=== PATIENT | male | born 1965 | race Caucasian/White ===

== ENCOUNTER 2023-11-23 17:30 | Inpatient (IN) | payer BC, SELFPAY ==
[2023-11-23] VITALS (23 sets, daily range): BP systolic 140–198; BP diastolic 75–119; BMI 24.4; BMI 23.3
--- NOTE | 2023-11-23 14:09 | ED.GENMED ---
History of Present Illness
General
Chief Complaint: Abnormal Lab Value
Source: patient
Exam Limitations: none
Time Seen by Provider: 11/23/23 13:44
Nursing documentation reviewed up to this point in time: agreed with
Travel History
Have you had any contact with someone who has COVID-19?: No
Do you have any symptoms of coronavirus? Fever > 100 degrees, chills, cough, shortness of breath, sore throat, loss of taste or smell, muscle aches, or headache?: No
History of Present Illness
History of Present Illness:
Patient is a 58-year-old presents to the ER for evaluation. Patient reports he had a viral illness 10 days ago. He had a headache body aches felt fluish. He was seen in urgent care and tested negative for flu COVID and RSV. He had headache with
this. Headache resolved then he developed some earache and a sore throat that had also since resolved. During that time he had 2 episodes of nasal bleeding when he blew his nose.
He does report that the virus really hit him and he lost 10 pounds throughout the virus he was not hungry he felt very achy etc. Since then he has felt very fatigued and has some shortness of breath with exertion. He had blood work done by his
family doctor and his hemoglobin found below 6.5. He denies any black stools. He has never had a colonoscopy. Denies any change of bowel or bladder .
prior to this virus he was very healthy is a mountain bike or exercises frequently. He does have history of hypertension but stopped it a while ago.
Past History
Past History
ED Past Medical History: Negative HTN or Hypercholesterolemia
ED Past Surgical History: Negative Cardiac
Social History
Tobacco: Non-smoker
Alcohol: None
Drug: None
Personal:
Living: with family
Employment: Employed
Family History
Family History: Other
Review of Systems
Review of Systems
Allergies reviewed?: Yes
Other source history: family
All Other Systems: ROS reviewed and negative except as documented in HPI and ROS
Constitutional: Reports fatigue; Denies fever
EENT: Reports no symptoms
Respiratory: Reports other (SOB w/ exertion )
Cardiac: Reports no symptoms
ABD/GI: Reports no symptoms
: Reports no symptoms
Musculoskeletal: Reports no symptoms
Skin: Reports no symptoms
Neurological: Reports no symptoms
Hematologic/Lymphatic: Reports no symptoms
Psychiatric: Reports no symptoms
Phy Exam
General Physical Exam
General Presentation: no apparent distress
General age: appears stated age
General Skin: warm and dry
General Habitus: normal
General Mental: alert
General Hydration: appears well hydrated
Cardiovascular Exam
Cardiovascular Exam: tachycardia
Pulmonary Exam
Pulmonary Exam: lungs clear and no respiratory distress
Gastrointestinal Exam
Gastrointestinal Exam: non tender, soft and other (brown stool heme negative )
Neurological Exam
Neurological Exam: alert and oriented x3
Musculoskeletal Exam
Musculoskeletal Exam: full ROM
Skin Exam
Skin Exam: normal color and warm/dry
Psychiatric Exam
Psychiatric Exam: normal mood/affect
Course
Orders/Labs/Results
Orders:
Orders
11/23/23 13:57
IV Insert/Care/Rem.- Treatment PRN
11/23/23 14:05
Type+Screen Urgent
Complete Blood Count/With Diff Urgent
Comprehensive Metabolic Panel Urgent
Haptoglobin [S] Urgent
Comment: ADDON
Iron Urgent
Comment: ADD ON
LDH Urgent
Manual Differential Urgent
Reticulocyte Count Urgent
Comment: ADDON
Total Iron Binding Urgent
Comment: ADD ON
11/23/23 14:43
* Blood Bank Products Urgent
's Orders: kevin
Blood Bank Products: *Packed RBC Leuko(PRBC's)
Quantity: 2
Transfuse Today: Yes
Reason: Anemia
Comment: consent obtained
11/23/23 14:48
0.9% Sodium Chloride 500 ml [Nss] 500 ml IV BOLUS
11/23/23 14:51
Electrocardiogram (*1) Stat
Reason for Study: Other
Other Reason for Exam: chest pain
Cardiac Monitoring- Treatment ONCE
EKG- Treatment ONCE
11/23/23 Dinner
Regular
At Your Request: Full Participation
11/23/23 17:10
Diltiazem Extended Release [Cardizem Cd] 180 mg PO NOW STA
11/23/23 17:11
Add On- LAB Urgent
Tests Added?: haptoglobin, retic, LDH
11/23/23 17:13
HEMATOLOGY CONSULT Routine
Consulting Provider: Pavan Love
Was physician already notified: Yes
Reason for consult: Symptomatic anemia
11/23/23 17:16
Admit/Transfer Patient As Directed
Co-Sign Provider:
Level of Care: Inpatient admission
Assign to:: Telemetry
Physician / Group: randy navarro
Diagnosis: Symptomatic anemia, HTN
Reason for Telemetry: Arrhythmia
Date to Stop Telemetry: 11/26/23
Time to Stop Telemetry: 11:00
Reason for Hospitalization: Symptomatic anemia
Expected length of stay greater than two midnights?: Yes
ELOS- Estimated Length of Stay in days: 5
I certify the patient meets the requirements for IP care: Yes
Code Status As Directed
Resuscitation Status: Full Code
11/23/23 17:19
Add On- LAB Urgent
Tests Added?: iron tibc, b12 folate
11/23/23 17:25
Consult Infectious Disease [INFECTIOUS DISEASE CONSULT] Routine
Consulting Provider: Ruby Mahan
Was physician already notified: Yes
Reason for consult: symptmatic anemia following febrile illness
11/23/23 17:32
Folate Urgent
Comment: ADD ON
Vitamin B12 Urgent
Comment: ADD ON
11/23/23 18:00
Flush (0.9% Sodium Chloride) [Flush (Nss)] See Dose Instructions IV PER PROTOCOL
11/23/23 18:07
Momo-Jackson Virus Ab Panel I [S] Routine
Monotest Routine
11/23/23 19:21
Acetaminophen [Tylenol] 650 mg PO Q4HPRN PRN
11/23/23 19:21
Activity As Directed
Activity Level: As Tolerated
Pneumatic Compression Sleeves As Directed
Type: Knee high
Vital Signs As Directed
Frequency: Per unit guidelines
Ot Eval And Treat Routine
Pt Eval And Treat Routine
Activity Level: As Tolerated
DX Deep Vein Thrombosis Video Routine
11/24/23 06:13
Cardiovascular Evaluation IN AM
Complete Blood Count/With Diff IN AM
Comprehensive Metabolic Panel IN AM
11/24/23 08:00
Diltiazem Extended Release [Cardizem Cd] 180 mg PO DAILY
Lisinopril [Zestril] 20 mg PO DAILY
11/25/23 05:22
Complete Blood Count/With Diff IN AM
Comprehensive Metabolic Panel IN AM
11/26/23 06:00
Complete Blood Count/With Diff IN AM
Comprehensive Metabolic Panel IN AM
11/26/23 11:00
DC Protocol for Telemetry ONCE
11/27/23 06:00
Complete Blood Count/With Diff IN AM
Comprehensive Metabolic Panel IN AM
Abnormal Lab Results
11/23/23
14:05
RBC 2.02 L 10^6/uL
(4.70-6.10)
Hgb 6.0 L* g/dL
(13.0-18.0)
Hct 17.2 L* %
(39.0-52.0)
Plt Count 551 H 10^3/uL
(130-400)
Abs Immat Gran (auto) 1.2 H 10^3/uL
(0-0.05)
Absolute Monos (auto) 0.9 H 10^3/uL
(0.1-0.6)
Immature Gran % 15.9 H %
(0-0.5)
Monocytes % 12.0 H %
(1.7-9.3)
Band Neutrophils 8 H %
(0-3)
Blast Cells 3 H* %
(-)
BUN 30 H mg/dl
(9-20)
Glucose 100 H mg/dl
(70-99)
Iron 305 H ug/dl
(49-181)
% Saturation 107 H %
(20-50)
ALT 56 H U/L
(0-50)
Alkaline Phosphatase 137 H U/L
(38-126)
Lactate Dehydrogenase 375 H U/L
(120-246)
Crossmatch IS Only See Detail
11/23/23 14:05
11/23/23 14:05
Vital Signs
Initial and Last Documented VS:
Initial Vital Signs
Temp Pulse Resp BP Pulse Ox
98.2 F 113 16 198/119 99
11/23/23 13:29 11/23/23 13:29 11/23/23 13:29 11/23/23 13:29 11/23/23 13:29
Last Documented Vital Signs
Temp Pulse Resp BP Pulse Ox
98.2 F 90 18 172/95 97
11/25/23 23:55 11/25/23 23:55 11/25/23 23:55 11/25/23 23:55 11/25/23 23:55
Gusset Folder consulted with Physician
Gusset Folder consulted with physician?: Yes
Name of Physician Consulted: kiara
MDM/Problems Addressed
Differential Diagnosis Includes:
Not limited to anemia /hemolytic anemia, cancers
MDM/Problems Addressed:
58-year-old male presents to the ER sent by family doctor for low hemoglobin. Patient is document had a virus 10 days ago and ever since has felt very fatigued. Denies any black or dark stools. Patient was found to have a hemoglobin low here of
6.0. He denies any rectal bleeding or black stools. Rectal exam shows brown stool heme-negative here in the ER. nml wbc elevated platlets , elevated bun . Pt is mildly tachycardic however no acute distress. Patient consented for blood will
transfuse. Patient is symptomatic anemia with tachycardia low hemoglobin will admit for further evaluation
*Pulse Oximetry
Patient hypoxic: no
*Critical Care Note
Total Time (30-74mins, 75-104mins- exclusive of procedures): Not Applicable
ED Attending Note
-
Portions of this chart may have been created with voice recognition software.� Occasional wrong word or��sound alike� substitutions may have occurred due to the inherent limitations of voice recognition software.
Discharge Plan
Departure
Patient Disposition: Admit
Date of Disposition: 11/23/23
Time of Disposition: 14:51
Admit to: Med/Surg
Admit to doctor: hospitalist
Presentation/result/management discussed w/ accepting MD/DO: Hospitalist
Patient with high blood pressure during this ER visit?: Yes
Condition: Fair
Covid-19: Not Applicable
Discharge Problem:
Symptomatic anemia
Interventions
Interventions:
*Risk Screen - Suicide Last Done: 11/23/23 13:29
*General Assessment Last Done: 11/23/23 13:29
*Neglect/Abuse Screening Last Done: 11/23/23 13:29
ED- Fall Risk Assessment Last Done: 11/23/23 14:14
*ED COVID-19 Vaccine History Last Done: 11/23/23 14:14
*Nursing Disposition Last Done: 11/23/23 19:36
Discharge Date and Time
Discharge Date/Time: 11/23/23 19:36
[2023-11-23 14:19] LABS: Mean Corp Hgb Conc. 34.9 g/dL (33.0-37.0); Mean Corpuscular Hgb 29.7 pg (27.0-31.0); Mean Corpuscular Volume 85.1 fL (80.0-94.0); Mean Platelet Volume 9.9 fL (7.4-10.4); Platelet Count 551 10^3/uL (130-400); Red Blood Cell Count 2.02 10^6/uL (4.70-6.10); Red Cell Dist. Width 12.8 % (11.5-14.5); White Blood Cell Count 7.8 10^3/uL (4.8-10.8)
[2023-11-23 14:25] LABS: Hematocrit 17.2 % (39.0-52.0)
[2023-11-23 14:40] LABS: ALT (SGPT) 56 U/L (0-50); AST (SGOT) 34 U/L (17-59); Alkaline Phosphatase 137 U/L (38-126); Blood Urea Nitrogen 30 mg/dl (9-20); Calcium 9.6 mg/dl (8.4-10.2); Carbon Dioxide 25 mmol/L (22-30); Chloride 106 mmol/L (98-107); Estimated Creatinine Clearance 124 ml/min; Glucose 100 mg/dl (70-99); LDH 375 U/L (120-246); Potassium 4.3 mmol/L (3.5-5.1); Sodium 137 mmol/L (135-145); Total Bilirubin 0.4 mg/dl (0.2-1.3); Total Protein 7.8 g/dl (6.3-8.2); eGFR > 60.00
[2023-11-23] MEDS: NSS 500 IV (14:53)
[2023-11-23 15:17] LABS: Band Neutrophils 8 % (0-3); Lymphocytes 35 % (20-51); Metamyelocytes 1 % (-); Monocytes 5 % (2-9); Myelocytes 2 % (-); Promyelocytes 2 % (-)
[2023-11-23 15:18] LABS: Anisocytosis 1+; Blasts 3 % (-); Hypochromasia 1+; Normal RBC Morphology No; Platelets Checked Yes; Polychromasia 1+
[2023-11-23 15:19] LABS: Stomatocytes 1+; Total Cells Counted 100
--- NOTE | 2023-11-23 16:24 | HPS.HSE ---
Addendum entered and electronically signed by Osvaldo Tidwell MD 11/23/23 18:04:
Seen and examined by me independently in collaboration with the nurse practitioner Nina.
Past medical history/social history/medication/allergies reviewed.
Lab data and imaging data reviewed.
58 healthy and active gentleman presents with symptomatic severe anemia.
Preceding this he had an episode of severe pharyngitis which was self-limiting. He apparently had COVID, flu and RSV tested. He is not sure if he had a strep throat swab done.
Following severe pharyngitis episode he is extremely fatigued.
Patient currently has no signs of pharyngitis or tender lymphadenopathy nor splenomegaly. He has severe anemia with significant left shift and has bone marrow including peripheral blasts.
No whatsoever symptoms before his pharyngitis episode. No type B symptoms either.
With mild abnormal LFTs as well.
Heme-negative brown stools noted.
Severe anemia-rule out hemolysis and bone marrow dysfunction. Support with transfusion due to his symptoms and severe anemia.
He has been traveling before his acute severe pharyngitis. Check a Monospot and EBV serologies. Consult ID for differential of his severe pharyngitis. Will consider HIV testing as well.
Hematology input will be requested-do recommend leukemia lymphoma panel to start.
Discussed with at bedside.
Original Note:
Family Physician
-
Family Physician: Jose Maria Longoria
Chief Complaint
-
Fatigue, abnormal outpatient hemoglobin
History of Present Illness
58-year-old male complaining of a viral illness 10 days ago where he had headache with 4 to 5 days of fever then developed sore throat and earache. He reports he was seen at urgent care tested negative for flu COVID and RSV. Had outpatient lab
work done by his PCP was noted to have a hemoglobin of 6.5. He denies black or bloody stools. He had heme-negative brown stool in the ER he reports he has never had an endoscopy or colonoscopy. In the ER he was noted to have a hemoglobin of 6.
He has past medical history of hypertension which started back on blood pressure medication 1 week ago by his PCP.
Medical History
Past Medical History
Past Medical History: Reports HTN and Hypercholesterolemia
Past Surgical History: Reports Other
Additional Past Surgical History:
Left shoulder AC ligament reconstruction August 2008
C5-6, C6-7 discectomy
Social History
Tobacco: Non-smoker
Alcohol: Occasional
Drug: None
Personal:
Living: With Family ()
Employment: Employed
Family History
Family History: Other (Mother living history of Parkinson's father prostate cancer age 83 history of DM2, HTN)
Allergies / Home Medications
Allergies reflects when Allergies were last updated in [facility].
Home Medications with original date entered in [facility]
Allergy/Medication List:
Allergies
Allergy/AdvReac Type Severity Reaction Status Date / Time
No Known Allergies Allergy Verified 11/23/23 14:19
Home Medications
lisinopril 20 mg tablet 20 mg PO DAILY 11/23/23
Review of Systems
-
History Source: Patient and Family ( at bedside)
A 12 point ROS was completed and negative except as noted: Yes
Constitutional: Reports Fatigue; Denies Fever
EENT: Denies Sore Throat or Runny Nose
Respiratory: Denies Cough or Trouble Breathing
Cardiac: Denies Chest Pain, Diaphoresis, Palpitations or Syncope
Abdomen/GI: Denies Abdominal Pain, Nausea, Vomiting, Diarrhea, Constipated or Bloody Stools
: Denies Dysuria, Frequency, Flank Pain, Incontinence, Difficulty Voiding or Urgency
Musculoskeletal: Denies Joint Pain, Joint Swelling or Edema
Skin: Denies Itching or Rash
Neurological: Denies Dizzy, Headache or Weakness
Endocrine: Reports No Symptoms
Hematologic/Lymphatic: Reports No Symptoms
Psych: Reports Calm
Physical Exam
Vital Signs
Vital Signs
Temp Pulse Resp BP Pulse Ox
98.2 F 115 20 190/104 97
11/23/23 13:29 11/23/23 15:15 11/23/23 15:15 11/23/23 14:17 11/23/23 15:15
Physical Exam
General: Comfortable and Conversant; No Pain, Fever or Chills
HEENT: NormoCephalic, Anicteric, Moist mucous membranes, PERRLA and No Ptosis
Respiratory: Clear; No Wheezes, Rales or Rhonchi
Cardiac: S1/S2 and Tachycardia (Sinus tachycardia 113 bpm); No Murmur, Rub, Gallop or Peripheral Edema
Breast: Deferred by me
GI: Soft, Non Tender, Non Distended, Normal Bowel Sounds and No Hepatosplenomegaly
Rectal: Hem Negative (Brown stool)
Genito-urinary: Deferred by me
Musculoskeletal: No Clubbing, No Cyanosis and No Edema
Skin: Warm and Dry; No Rash, Jaundice, Ulcers or Lesions
Neuro: AO x 3, No Motor Deficits, Nonfocal/grossly intact, Cranial Nerves Intact and DTR's Intact & Symmetrical; No Slurred Speech, Facial Droop or Tremors
Psych: Calm
Laboratory Results
-
11/23/23 14:05
11/23/23 14:05
Laboratory Results
Total Bilirubin 0.4 mg/dl (0.2-1.3) 11/23/23 14:05
AST 34 U/L (17-59) 11/23/23 14:05
ALT 56 U/L (0-50) H 11/23/23 14:05
Alkaline Phosphatase 137 U/L (38-126) H 11/23/23 14:05
Data Reviewed
-
Lab Data: Labs Reviewed by me
Impression/Plan
-
Impression/plan:
Admit to telemetry
#Symptomatic anemia concern for blood disorder vs viral acute pharyngitis
#Thrombocytosis
Heme negative brown stool
Hgb 6, PLT 551,, 8% band, 3 blast and 2 promyelocytes on differential
Lactate dehydrogenase elevated at 375
Type and screen, obtain blood consent
Transfuse 2 units PRBC
-Check LDH, haptoglobin, reticulocyte count, mono, ebv
-Consult hematology
checl lymphoma panel/lymphoma panel
-Follow CBC, CMP
EKG: Sinus tach 109 bpm, QTc 490 MS, incomplete RBBB
#Mild transaminitis
AST 34, ALT 56, alk phos 137
#HTN�benign
190/104
- Add Cardizem 180 mg now and daily
-Continue lisinopril 20 mg daily
#RBBB
#Cervical DDD with radiculopathy C5-C6 level
#Cervical stenosis
#HLD
No current meds
DVT prophylaxis
SCDs
Full code
[2023-11-23 17:16] LABS: % Basophils 0.4 % (0-2); % Immature Granulocytes 15.9 % (0-0.5); % Lymphocytes 23.4 % (20.5-51.1); % Neutrophils 48.3 % (42.2-75.2); Absolute Immature Granulocytes 1.2 10^3/uL (0-0.05); Absolute Lymphocytes 1.8 10^3/uL (1.2-3.4); Absolute Monocytes 0.9 10^3/uL (0.1-0.6); Absolute Neutrophils 3.8 10^3/uL (1.4-6.5); Nucleated Red Blood Cells % 0 % (-); Reticulocyte Count 0.5 % (0.4-2.8)
[2023-11-23] MEDS: CARDIZEM CD 180 MG PO (17:27)
[2023-11-23 17:46] LABS: Iron 305 ug/dl (49-181)
[2023-11-23 17:55] LABS: Percent Saturation 107 % (20-50); Total Iron Binding Capacity 283 ug/dl (261-462)
[2023-11-23 18:28] LABS: COVID-19 Antigen Negative (Negative)
[2023-11-23] MEDS: APRESOLINE 5 MG IV (18:28)
[2023-11-23 18:54] LABS: Vitamin B12 943 pg/ml (239-931)
[2023-11-23 19:15] LABS: Monotest Negative (Negative)
--- NOTE | 2023-11-23 19:22 | PTCARENOTE ---
Pt arrived onto floor @1921. Pt AAOx3 and able to walk into room without assistance. Pt arrived with 2nd unit of blood in the process of transfusing, due to hemoglobin of 6.0. Pt is asymptomatic of any reaction. Pt oriented to room and call
judith, will continue to monitor.
[2023-11-24] VITALS (7 sets, daily range): BP systolic 142–162; BP diastolic 85–97; PULSE 89; O2SAT 98
[2023-11-24 06:59] LABS: Hematocrit 25.2 % (39.0-52.0); Mean Corp Hgb Conc. 34.1 g/dL (33.0-37.0); Mean Corpuscular Hgb 29.9 pg (27.0-31.0); Mean Corpuscular Volume 87.5 fL (80.0-94.0); Mean Platelet Volume 10.1 fL (7.4-10.4); Platelet Count 493 10^3/uL (130-400); Red Blood Cell Count 2.88 10^6/uL (4.70-6.10); Red Cell Dist. Width 12.8 % (11.5-14.5); White Blood Cell Count 5.9 10^3/uL (4.8-10.8)
[2023-11-24 07:08] LABS: Hemoglobin 8.6 g/dL (13.0-18.0)
[2023-11-24 07:37] LABS: ALT (SGPT) 49 U/L (0-50); AST (SGOT) 31 U/L (17-59); Albumin 3.9 g/dl (3.5-5.0); Alkaline Phosphatase 120 U/L (38-126); Blood Urea Nitrogen 22 mg/dl (9-20); Calcium 9.3 mg/dl (8.4-10.2); Carbon Dioxide 26 mmol/L (22-30); Chloride 103 mmol/L (98-107); Estimated Creatinine Clearance > 125 ml/min; Glucose 92 mg/dl (70-99); HDL Cholesterol 32 mg/dl; LDL Cholesterol, Calculated 89 mg/dl; Potassium 4.6 mmol/L (3.5-5.1); Sodium 139 mmol/L (135-145); Total Bilirubin 0.8 mg/dl (0.2-1.3); Total Cholesterol 164 mg/dl (50-199); Total Protein 7.5 g/dl (6.3-8.2); Triglyceride 217 mg/dl (10-149); Very Low Density Lipoprotein 43 mg/dl (0-30); eGFR > 60.00
[2023-11-24] MEDS: ZESTRIL 20 MG PO (08:12)
[2023-11-24] MEDS: CARDIZEM CD 180 MG PO (08:13)
[2023-11-24 09:12] LABS: Absolute Neutrophils -Man Diff 2.7 10^3/uL (1.4-6.5); Band Neutrophils 7 % (0-3); Lymphocytes 20 % (20-51); Monocytes 18 % (2-9); Segmented Neutrophils 40 % (42-75)
[2023-11-24 09:13] LABS: Anisocytosis 1+; Hypochromasia 1+; Metamyelocytes 9 % (-); Myelocytes 3 % (-); Normal RBC Morphology No; Platelets Checked Yes; Polychromasia Slight; Stomatocytes 1+
[2023-11-24 09:14] LABS: Total Cells Counted 100
[2023-11-24 09:18] LABS: Blasts 3 % (-)
--- NOTE | 2023-11-24 09:56 | CM ---
Patient seen at bedside. Patient stated that his PCP is Dr. Longoria and he uses the [facility] in [facility]. Patient states that he is independent of ADL's and IADL's. Patient states that he has no DME or past need for VN. CM will continue to follow
for discharge planning needs.
Plan; home with no needs.
--- NOTE | 2023-11-24 11:00 | W.PN.HOSP.TC ---
Today's Communication/Plan
-
Follow ID and hematology recommendations
DC planning
Assessment / Plan
Assessment / Plan
#Symptomatic severe anemia -heme-negative and no iron deficiency. Hemodynamically stable. With abnormal blood smear concerning about bone marrow dysfunction. Mildly elevated LDH but no other evidence of hemolysis-bilirubin normal. Haptoglobin
pending. S/p transfusion with improvement in symptoms.
#Peripheral blast-patient with significant shift in the left side including blasts. Differential also shows promyelocytes, myelocytes, and metamyelocytes. Unclear if reactive or primary bone marrow dysfunction. He recently had a severe acute
pharyngitis which is now resolved. Leukemia/lymphoma panel requested. Await hematology input.
No palpable spleen. No stomach lymphadenopathy.
#Acute self-limiting severe pharyngitis-now resolved. Asymptomatic. Patient with mild abnormal LFTs on admission noted. Monospot negative. EBV serologies pending. Patient does not think he has HIV-did not consent for blood test.
#Mild transaminitis
AST 34, ALT 56, alk phos 137; now normalized.
#HTN�benign
Uncontrolled on admission.
- Added Cardizem 180 mg. Improved blood pressure.
-Continue lisinopril 20 mg daily
#RBBB
#Cervical DDD with radiculopathy C5-C6 level
#Cervical stenosis
#HLD
No current meds
DVT prophylaxis
SCDs
Full code
Anticipated Discharge: Today
Subjective/Interval History
-
Date of Service: November 24, 2023
Feeling improved after transfusion. But has not walked around yet to notice the difference.
No new symptoms.
Objective Data
-
Labs:
Laboratory Results
11/24/23
06:13
WBC 5.9
Hgb 8.6 L D
Hct 25.2 L
Plt Count 493 H
Sodium 139
Potassium 4.6
Chloride 103
Carbon Dioxide 26
BUN 22 H
Creatinine 0.6 L
Glucose 92
Calcium 9.3
Total Bilirubin 0.8
AST 31
ALT 49
Alkaline Phosphatase 120
Vital Signs:
Vital Signs
Temp Pulse Resp BP Pulse Ox
98.0 F 82 18 159/97 98
11/24/23 07:39 11/24/23 08:12 11/24/23 07:39 11/24/23 08:12 11/24/23 07:39
I&O
11/23/23 11/24/23 11/25/23
06:59 06:59 06:59
Intake Total 250 / 250
Balance 250 / 250
Review of Systems
-
Constitutional: Denies Fever or Chills
EENT: Denies Sore Throat
Respiratory: Denies Cough or Trouble Breathing
Cardiac: Denies Chest Pain
Neuro: Denies Dizzy
Physical Exam
-
General: No Apparent Distress
HEENT: Moist Mucous Membranes
Respiratory: Clear to Auscultation
Cardiac: Regular Rhythm and S1/S2
GI: Soft, Nontender, Nondistended, Normal Bowel Sounds and No Hepatosplenomegaly
Neuro: AO x 3
Data Reviewed
-
Labs: Labs Reviewed by me
--- NOTE | 2023-11-24 11:27 | CON.ID ---
Consultation
-
Date/Time Consultation Requested: 11/23/23 17:25
Date/Time Consultation Performed: 11/24/23 11:27
Requesting Provider: Mihir GODINEZ
Performing Provider: Dr Mahan
Reason for Consultation: symptmatic anemia following febrile illness
Chief Complaint / Past History
Chief Complaint
Fatigue, abnormal outpatient hemoglobin
History of Present Illness
Mr Hill is a 58 year old male without significant medical history who recently had a self limited episode of severe pharyngitis; covid, flu and rsv testing was reportedly negative, strep throat swab not done. The sore throat has fully resolved and
no current tender lymphadenopathy. He saw PCP and found to have severe anemia, L shift and blasts. No fevers, chills or weight loss. Heme negative stools reported. He was referred here. Remote history of lyme disease about 10 years ago.
Since arrival here he has been afebrile, bp stable, wbc on arrival 7.8 today 5.9, hgb initially 6.0 now 8.6 s/p 2 units prbcs, plt 551 on arrival now 493, 16% immature granulocytes -Immature Granulocytes includes metamyelocytes, myelocytes and
promyelocytes., 12% no esos note present, cr 0.6, t bili 0.8, ast 31, alt 49, alk phos 120, LDH 375, B12/folate normal, iron 305, tibc 283, % sat 107, retic 0.5% within normal - but lower than expected given anemia; smear path pending, haptoglobulin
pending
Past History
Additional Past Medical History:
HTN and Hypercholesterolemia
Past Surgical History: Other
Allergy History:
No Known Allergies Allergy (Verified 11/23/23 14:19)
Medications Reviewed: Yes
Social History
Tobacco: Non-Smoker
Alcohol: Occasional
Drug: None
Living: Other (grew up in [facility] on a [place]; avid mountain biker/skiier but hasnt been very active outdoors last 3 months as weather poor)
Family History
Family History: Not Pertinent
Review of Systems
Review of Systems
General: Negative Fever or Chills
All systems: All other systems were reviewed and were negative
Vital Signs
Temp Pulse Resp BP Pulse Ox
98.5 F 87 16 152/86 97
11/24/23 11:26 11/24/23 11:26 11/24/23 11:26 11/24/23 11:26 11/24/23 11:26
Physical Exam
Physical Exam
Constitutional: No Acute Distress
Pharynx: Other (posterior palate with petechiae)
Cardiovascular: Regular Rate and S1/S2; Negative Murmur or Rub
Pulmonary: Clear and Symmetric; Negative Wheezes, Rales or Rhonchi
Gastrointestinal: Soft, Non Tender, Non Distended and Normal Bowel Sounds
Skin: Warm and Dry; Negative Rash or Jaundice
Neurological: Awake
Lab / Diagnostic Study Results
11/24/23 06:13
11/24/23 06:13
Abs Immat Gran (auto) 1.2 10^3/uL (0-0.05) H 11/23/23 14:05
Absolute Neuts (auto) 3.8 10^3/uL (1.4-6.5) 11/23/23 14:05
Absolute Lymphs (auto) 1.8 10^3/uL (1.2-3.4) 11/23/23 14:05
Absolute Monos (auto) 0.9 10^3/uL (0.1-0.6) H 11/23/23 14:05
Absolute Basos (auto) 0.0 10^3/uL (0-0.2) 11/23/23 14:05
Total Counted 100 11/24/23 06:13
Immature Gran % 15.9 % (0-0.5) H 11/23/23 14:05
Neutrophils % 48.3 % (42.2-75.2) 11/23/23 14:05
Lymphocytes % 23.4 % (20.5-51.1) 11/23/23 14:05
Monocytes % 12.0 % (1.7-9.3) H 11/23/23 14:05
Eosinophils % 0.0 % (0-6) 11/23/23 14:05
Basophils % 0.4 % (0-2) 11/23/23 14:05
Abs Neuts (Manual) 2.7 10^3/uL (1.4-6.5) 11/24/23 06:13
Segmented Neutrophils 40 % (42-75) L 11/24/23 06:13
Band Neutrophils 7 % (0-3) H 11/24/23 06:13
Lymphocytes (Manual) 20 % (20-51) 11/24/23 06:13
Assessment / Plan
Severe anemia - improved
- if haptoglobulin low then would get babesia smear; note mildly elevated LDH, t bili however normal
- smear pending
- parvovirus a consideration, low reticulocyte count is supportive, self limited and testing would not impact management from my perspective
Severe pharyngitis - resolved
- prior EBV exposure is nearly universal at this age; monosyndrome triad typically: sore throat, lymphadenopathy and fever; patient didnt have lymphadenopathy
- CMV would also be a consideration in a young person with the triad, again with a high prevalence at this age in many populations
- patient reports no risk factors and refuses HIV screen, my clinical suspicion is low, agree with not testing
--- NOTE | 2023-11-24 14:35 | W.DS.TRANS ---
DC Summary - Partition Setter
-
Discharge Instructions:
Discharge Diagnosis/Procedures Severe anemia with peripheral blasts
Diet Regular
Activity As tolerated
Driving Restrictions As prior to admission
Bathing Restrictions None
Blood Work CBC blood work in one week -arrange it through
your PCP
Instructions:
Stand-Alone Forms:
Changes to Home Medications: Yes
Discharge Medications:
DC Medications w/original date entered in [employer]
lisinopril 20 mg tablet 20 mg PO DAILY 11/23/23
diltiazem HCl 180 mg capsule,extended release 24 hr 180 mg PO DAILY #30 caps 11/24/23
Home Medication Changes
New medication - Diltiazem
Pending Results: Yes (Lymphoma/Leukemia panel pending)
--- NOTE | 2023-11-24 16:18 | CON.ONC ---
Impression
Impression
anemia
abnormal WBC differential
recent viral illness - pharyngitis - headache - fatigue
Plan
Plan
1. Anemia - abnormal WBC differential - slight thrombocytosis - The etiology of this patient's CBC abnormalities is unclear. He did experience recent viral type symptoms - indicative of possible infectious etiology which could have impacted CBC
resulting in these findings. Peripheral blood smear was reviewed - some scattered early myeloid precursors were appreciated. Will send peripheral blood flow cytometry. Could consider additional w/u w/ bone marrow aspiration and biopsy pending
findings from flow cytometry. Viral as well as tick-bourne illness titers and w/u are underway as per the direction of ID.
Will continue to follow with you.
Patient History
History of Present Illness
58y/o male seen in consultation today regarding anemia, as well as abnormal WBC differential.
The patient recently had a viral illness about 10 days ago, where he experienced headache, sore throat, and fatigue. He presents to the ER w/ anemia - Hb 6.0g/dl, slight thrombocytosis - plt count 551,000, and abnormal WBC differential. Total WBC
was 7800 w/ 3800 neutrophils, 1800 lymphocytes, and 900 monocytes. Scattered early myeloid precursors were appreciated, w/ concern for about 3% blasts.
He was transfused and Hb is up to 8.6g/dl today. WBC differential continues to demonstrate some early myeloid precursors.
He notes he is feeling better today. No fevers. No SOB, chest pain, palpitations, abdominal pain/ fullness, skin rash, night sweats.
Past-Medical/Surgical History
PMH:
HTN
Hypercholesterolemia
SH:
Tobacco: Non-Smoker
Alcohol: Occasional
Drug: None
FH:
Family History: Not Pertinent
Allergies: NKDA
Patient Medication
�Medication �Instructions �Recorded �Confirmed �Last Taken �Type
lisinopril 20 mg tablet 20 mg PO DAILY Blood Pressure 11/23/23 11/23/23 11/23/23 History
diltiazem HCl 180 mg 180 mg PO DAILY #30 caps 11/24/23 Unknown Rx
capsule,extended release 24 hr
Active Medications
Generic Name Dose Route Start Last Admin
Trade Name Freq PRN Reason Stop Dose Admin
Acetaminophen 650 mg 11/23/23 19:21
Acetaminophen 325 Mg Tablet PO 12/21/23 19:20
Q4HPRN PRN
mild pain/LYLES/temp> 100.4F
Diltiazem HCl 180 mg 11/24/23 08:00 11/24/23 08:13
Diltiazem 180 Mg Extended Release (24 H) Capsule PO 12/22/23 07:59 180 mg
DAILY NIKA Administration
Hydralazine HCl 5 mg 11/23/23 18:18 11/23/23 18:28
Hydralazine 20 Mg/Ml Vial IV 12/21/23 18:17 5 mg
Q6HPRN PRN Administration
sbp>160 or dbp>100
Lisinopril 20 mg 11/24/23 08:00 11/24/23 08:12
Lisinopril 20 Mg Tablet PO 12/22/23 07:59 20 mg
DAILY NIKA Administration
Sodium Chloride 0 flush 11/23/23 18:00
Sodium Chloride 0.9% (Flush) Syringe IV 12/21/23 17:59
PER PROTOCOL NIKA
Review of Systems
-
A ROS was completed w/ pertinent findings as per HPI.
Physical Exam
-
General: Well Developed and No Apparent Distress
HEENT: Negative Jaundice
Cardiology: Normal Sinus Rhythm
Pulmonary: Clear
GI: Soft
Extremities: No C/C/E
Neurology: Non Focal
Labs
Lab Results
WBC 5.9 10^3/uL (4.8-10.8) 11/24/23 06:13
RBC 2.88 10^6/uL (4.70-6.10) L 11/24/23 06:13
Hgb 8.6 g/dL (13.0-18.0) L D 11/24/23 06:13
Hct 25.2 % (39.0-52.0) L 11/24/23 06:13
MCV 87.5 fL (80.0-94.0) 11/24/23 06:13
MCH 29.9 pg (27.0-31.0) 11/24/23 06:13
MCHC 34.1 g/dL (33.0-37.0) 11/24/23 06:13
RDW 12.8 % (11.5-14.5) 11/24/23 06:13
Plt Count 493 10^3/uL (130-400) H 11/24/23 06:13
MPV 10.1 fL (7.4-10.4) 11/24/23 06:13
Abs Immat Gran (auto) 1.2 10^3/uL (0-0.05) H 11/23/23 14:05
Absolute Neuts (auto) 3.8 10^3/uL (1.4-6.5) 11/23/23 14:05
Absolute Lymphs (auto) 1.8 10^3/uL (1.2-3.4) 11/23/23 14:05
Absolute Monos (auto) 0.9 10^3/uL (0.1-0.6) H 11/23/23 14:05
Absolute Eos (auto) 0.0 10^3/uL (0-0.7) 11/23/23 14:05
Absolute Basos (auto) 0.0 10^3/uL (0-0.2) 11/23/23 14:05
Immature Gran % 15.9 % (0-0.5) H 11/23/23 14:05
Neutrophils % 48.3 % (42.2-75.2) 11/23/23 14:05
Lymphocytes % 23.4 % (20.5-51.1) 11/23/23 14:05
Monocytes % 12.0 % (1.7-9.3) H 11/23/23 14:05
Eosinophils % 0.0 % (0-6) 11/23/23 14:05
Basophils % 0.4 % (0-2) 11/23/23 14:05
Creatinine 0.6 mg/dL (0.7-1.3) L 11/24/23 06:13
Vital Signs
Vital Signs
Temp Pulse Resp BP Pulse Ox
98.5 F 87 16 152/86 97
11/24/23 11:26 11/24/23 11:26 11/24/23 11:26 11/24/23 11:26 11/24/23 11:26
[2023-11-24 18:45] LABS: INR 1.11; PT 14.1 Sec (11.4-14.6)
[2023-11-24 18:46] LABS: APTT 28.5 Sec (23.4-35.0); Fibrinogen 264 MG/DL (199-459)
[2023-11-25] VITALS (9 sets, daily range): BP systolic 132–197; BP diastolic 77–108
[2023-11-25 05:47] LABS: Hematocrit 22.5 % (39.0-52.0); Hemoglobin 7.7 g/dL (13.0-18.0); Mean Corp Hgb Conc. 34.2 g/dL (33.0-37.0); Mean Corpuscular Hgb 29.8 pg (27.0-31.0); Mean Corpuscular Volume 87.2 fL (80.0-94.0); Platelet Count 413 10^3/uL (130-400); Red Blood Cell Count 2.58 10^6/uL (4.70-6.10); Red Cell Dist. Width 12.9 % (11.5-14.5)
[2023-11-25 06:13] LABS: ALT (SGPT) 41 U/L (0-50); AST (SGOT) 26 U/L (17-59); Albumin 3.6 g/dl (3.5-5.0); Alkaline Phosphatase 112 U/L (38-126); Blood Urea Nitrogen 25 mg/dl (9-20); Calcium 9.4 mg/dl (8.4-10.2); Carbon Dioxide 25 mmol/L (22-30); Chloride 103 mmol/L (98-107); Estimated Creatinine Clearance 124 ml/min; Glucose 95 mg/dl (70-99); Potassium 4.8 mmol/L (3.5-5.1); Sodium 139 mmol/L (135-145); Total Bilirubin 0.5 mg/dl (0.2-1.3); eGFR > 60.00
[2023-11-25] MEDS: ZESTRIL 20 MG PO ×2 (07:54→20:34)
[2023-11-25] MEDS: CARDIZEM CD 180 MG PO (07:54)
--- NOTE | 2023-11-25 08:43 | PTOTSP ---
chart reviewed, pt up in bed. reports being up in room ad gaye, able to complete simple tasks without assistance. pt reports he was symptomatic prior to transfusion, however, feeling much better now. no acute OT needs identified per pt, will sign
off.
[2023-11-25 10:47] LABS: Absolute Neutrophils -Man Diff 3.9 10^3/uL (1.4-6.5); Segmented Neutrophils 43 % (42-75)
[2023-11-25] MEDS: APRESOLINE 5 MG IV ×2 (11:25→17:28)
[2023-11-25 11:38] LABS: Absolute Neutrophils -Man Diff 3.1 10^3/uL (1.4-6.5); Band Neutrophils 9 % (0-3); Lymphocytes 27 % (20-51); Metamyelocytes 6 % (-); Monocytes 8 % (2-9); Myelocytes 10 % (-); Segmented Neutrophils 36 % (42-75)
[2023-11-25 11:39] LABS: Anisocytosis Slight; Atypical Lymphocytes 1 %; Hypochromasia Slight; Normal RBC Morphology No; Platelets Checked Yes; Polychromasia Slight
[2023-11-25 11:40] LABS: Stomatocytes 1+; Total Cells Counted 100
[2023-11-25 11:41] LABS: Blasts 3 % (-)
--- NOTE | 2023-11-25 15:55 | W.PN.HOSP.TC ---
Today's Communication/Plan
-
BM bx
Transfuse PRBC
Increase Lisinopril
Assessment / Plan
Assessment / Plan
#Symptomatic severe anemia -heme-negative and no iron deficiency. Hemodynamically stable. With abnormal blood smear concerning about bone marrow dysfunction. Mildly elevated LDH but no other evidence of hemolysis-bilirubin normal. Haptoglobin
pending. S/p transfusion with improvement in symptoms.
Drop in HH noted -no external bleeding . With BM in question and low HH ,Will transfuse one more unit today
#Peripheral blast-patient with significant shift in the left side including blasts. Differential also shows promyelocytes, myelocytes, and metamyelocytes. Unclear if reactive or primary bone marrow dysfunction. He recently had a severe acute
pharyngitis which is now resolved. Leukemia/lymphoma panel requested.
No palpable spleen. No cervical lymphadenopathy.
BM biopsy requested by heme
#Acute self-limiting severe pharyngitis-now resolved. Asymptomatic. Patient with mild abnormal LFTs on admission noted. Monospot negative. EBV serologies pending. Patient does not think he has HIV-did not consent for blood test.
#Mild transaminitis
AST 34, ALT 56, alk phos 137; now normalized.
#HTN�benign
Uncontrolled on admission. Patient tells me he was on a combination medication for blood pressure which he was not compliant with. Lisinopril was just added back by PCP.
- cw Cardizem 180 mg.
-Increase lisinopril 20 mg daily to BID
#RBBB
#Cervical DDD with radiculopathy C5-C6 level
#Cervical stenosis
#HLD
No current meds
DVT prophylaxis
SCDs
Full code
dw and family
dw Dr Martínez
Anticipated Discharge: 24 - 48 hours
Subjective/Interval History
-
Date of Service: November 25, 2023
Weak but no CP or SOB
No fever or chills
No sore throat
Objective Data
-
Labs:
Laboratory Results
11/25/23
05:22
WBC 7.0
Hgb 7.7 L
Hct 22.5 L
Plt Count 413 H
Sodium 139
Potassium 4.8
Chloride 103
Carbon Dioxide 25
BUN 25 H
Creatinine 0.7
Glucose 95
Calcium 9.4
Total Bilirubin 0.5
AST 26
ALT 41
Alkaline Phosphatase 112
Vital Signs:
Vital Signs
Temp Pulse Resp BP Pulse Ox
98.0 F 67 18 132/77 98
11/25/23 15:36 11/25/23 15:36 11/25/23 15:36 11/25/23 15:36 11/25/23 15:36
I&O
11/24/23 11/25/23 11/26/23
06:59 06:59 06:59
Intake Total 500 / 500 2099 / 2100
Balance 500 / 500 2099
Review of Systems
-
Constitutional: Denies Fever or Chills
Respiratory: Denies Cough
Abdomen/GI: Denies Abdominal Pain, Nausea or Vomiting
Neuro: Denies Dizzy
Physical Exam
-
General: No Apparent Distress
HEENT: Moist Mucous Membranes
Respiratory: Clear to Auscultation
Cardiac: Regular Rhythm and S1/S2
GI: Soft
Neuro: AO x 3
Psych: Calm
Data Reviewed
-
Labs: Labs Reviewed by me
--- NOTE | 2023-11-25 16:10 | CM ---
Patient seen, reports no new concerns. Per Hospitalist note, transfusing unit of PRBC. CM will continue to follow for discharge planning needs.
Plan; home no needs.
--- NOTE | 2023-11-25 17:14 | W.PN.ONC2 ---
Today's Communication / Plan
-
Clinical picture concerning for underlying bone marrow dyscrasia.
No evidence of hemolysis or GIB.
I would be more comfortable attributing leukopenia to viral illness than isolated anemia.
Discussed bone marrow biopsy procedure and rationale at length. Pt agrees to procedure, requests conscious sedation as he is already very anxious.
Dr. Dietrich has approved procedure.
Ativan PRN anxiety, insomnia, while awaiting diagnosis.
Would anticipate transfer to [facility] if evidence of acute leukemia.
Impression
Impression
anemia
abnormal WBC differential
recent viral illness - pharyngitis - headache - fatigue
Plan
Plan
1. Anemia - abnormal WBC differential - slight thrombocytosis - The etiology of this patient's CBC abnormalities is unclear. He did experience recent viral type symptoms - indicative of possible infectious etiology which could have impacted CBC
resulting in these findings. Peripheral blood smear was reviewed - some scattered early myeloid precursors were appreciated. Will send peripheral blood flow cytometry. Could consider additional w/u w/ bone marrow aspiration and biopsy pending
findings from flow cytometry. Viral as well as tick-bourne illness titers and w/u are underway as per the direction of ID.
Will continue to follow with you.
Subjective/Objective
Chief Complaint
Anemia
Subjective
No new complaint. Pharyngitis symptoms resolved. Denies rectal bleeding/dark tarry stools.
Vital Signs:
Vital Signs
Temp Pulse Resp BP Pulse Ox
98.3 F 96 16 174/98 98
11/25/23 16:45 11/25/23 16:45 11/25/23 16:45 11/25/23 16:45 11/25/23 15:36
Lab Results:
Laboratory Data
WBC 7.0 10^3/uL (4.8-10.8) 11/25/23 05:22
Hgb 7.7 g/dL (13.0-18.0) L 11/25/23 05:22
Plt Count 413 10^3/uL (130-400) H 11/25/23 05:22
PT 14.1 Sec (11.4-14.6) 11/24/23 17:29
INR 1.11 11/24/23 17:29
APTT 28.5 Sec (23.4-35.0) 11/24/23 17:29
eGFR > 60.00 11/25/23 05:22
Physical Exam
HEENT: Moist Mucous Membranes; No Jaundice
Cardiology: Normal Sinus Rhythm, S1 and S2
Pulmonary: Clear; No Wheezes
GI: Soft, Normal Bowel Sounds and No Organomegaly
Extremities: Pulses Present and No C/C/E
Neuro: Non Focal
Review of Systems
Review of Systems
Constitutional: Denies Fever or Fatigue
Head: Denies Sore Throat or Hearing Loss
Respiratory: Reports Dyspnea; Denies Cough
Cardiovascular: Denies Chest Pain or Palpitations
Gastrointestinal: Denies Nausea/Vomiting or Diarrhea
Genitourinary: Denies Hematuria
Skin: Denies Rash or Pruritis
Neurological: Denies Headache or Numbness
Hem/Lymphatic: Denies Easy Bruising, Night Sweats or Swollen Glands
Orders
Orders
Orders From Last 24 Hours
11/25/23 14:50
Consult Interventional Radiology [[facility] CONSULT] Urgent
--- NOTE | 2023-11-25 17:20 | W.PN.ID1 ---
Date of Service
Date of Service: November 25, 2023
Today's Communication
- if haptoglobulin low then would get babesia smear; note mildly elevated LDH, t bili however normal
Assessment / Plan
Severe anemia - improved
- if haptoglobulin low then would get babesia smear; note mildly elevated LDH, t bili however normal
- parvovirus a consideration, low reticulocyte count is supportive, self limited and testing would not impact management from my perspective
- if fevers then send blood cultures x2
- would continue assessment for noninfectious causes
Chief Complaint
-: Other (possible viral infection)
Subjective / Review of Systems
remains afebrile
bp stable
hgb decreased
haptoglobin pending
Vital Signs / Physical Exam
Vital Signs
Vital Signs
Temp Pulse Resp BP Pulse Ox
98.3 F 96 16 174/98 98
11/25/23 16:45 11/25/23 16:45 11/25/23 16:45 11/25/23 16:45 11/25/23 15:36
Physical Exam
Constitutional: No Acute Distress
Cardiovascular: Regular Rate and S1/S2; Negative Murmur or Rub
Pulmonary: Clear and Symmetric; Negative Wheezes or Rales
Gastrointestinal: Soft, Non Tender, Non Distended and Normal Bowel Sounds
Skin: Warm and Dry; Negative Rash or Jaundice
Objective Data
Lab Data
Lab Results
11/25/23 05:22
11/25/23 05:22
PT 14.1 Sec (11.4-14.6) 11/24/23 17:29
INR 1.11 11/24/23 17:29
APTT 28.5 Sec (23.4-35.0) 11/24/23 17:29
Estimated Creat Clear 124 ml/min 11/25/23 05:22
Total Bilirubin 0.5 mg/dl (0.2-1.3) 11/25/23 05:22
AST 26 U/L (17-59) 11/25/23 05:22
ALT 41 U/L (0-50) 11/25/23 05:22
Alkaline Phosphatase 112 U/L (38-126) 11/25/23 05:22
Most recent labs reviewed.
[2023-11-25] MEDS: ATIVAN 0.5 MG PO (20:34)
[2023-11-26] VITALS (17 sets, daily range): BP systolic 84–183; BP diastolic 89–104
[2023-11-26 00:53] LABS: Haptoglobin 180 mg/dL (30-200)
[2023-11-26 01:11] LABS: EBV-EA (D) Ab IgG >150.0 U/mL (0.0-10.9); EBV-VCA IgM Antibodies <10.0 U/mL (0.0-43.9)
[2023-11-26] MEDS: APRESOLINE 5 MG IV ×2 (03:52→12:00)
[2023-11-26] MEDS: ATIVAN 0.5 MG IV (08:13)
[2023-11-26] MEDS: NSS (PRESERVATIVE FREE) 0.25 ML IV (08:14)
[2023-11-26] MEDS: CARDIZEM CD 180 MG PO (10:10)
[2023-11-26] MEDS: ZESTRIL 20 MG PO ×2 (10:11→20:58)
[2023-11-26 10:17] LABS: Hematocrit 25.9 % (39.0-52.0); Mean Corp Hgb Conc. 34.7 g/dL (33.0-37.0); Mean Corpuscular Volume 86.3 fL (80.0-94.0); Mean Platelet Volume 9.6 fL (7.4-10.4); Platelet Count 356 10^3/uL (130-400); Red Cell Dist. Width 13.2 % (11.5-14.5)
[2023-11-26 10:54] LABS: Absolute Neutrophils -Man Diff 2.9 10^3/uL (1.4-6.5); Band Neutrophils 11 % (0-3); Lymphocytes 31 % (20-51); Metamyelocytes 2 % (-); Monocytes 8 % (2-9); Myelocytes 7 % (-); Segmented Neutrophils 38 % (42-75)
--- NOTE | 2023-11-26 10:54 | W.PN.UPDATE ---
Update Note
Progress Note Update
- CT guided bone marrow biopsy has been performed
- Despite several needle repositionings with CT confirmation of appropriate needle placement, unable to aspirate any marrow. Dry tap.
- Core biopsy obtained using 8g needle.
- Pt tolerated well. Conscious sedation used.
[2023-11-26 10:55] LABS: Normal RBC Morphology Yes; Platelets Checked Yes; Total Cells Counted 100
[2023-11-26 10:56] LABS: Blasts 3 % (-)
[2023-11-26 11:43] LABS: ALT (SGPT) 41 U/L (0-50); AST (SGOT) 26 U/L (17-59); Alkaline Phosphatase 119 U/L (38-126); Blood Urea Nitrogen 22 mg/dl (9-20); Calcium 9.3 mg/dl (8.4-10.2); Carbon Dioxide 25 mmol/L (22-30); Chloride 106 mmol/L (98-107); Estimated Creatinine Clearance > 125 ml/min; Glucose 82 mg/dl (70-99); Potassium 4.3 mmol/L (3.5-5.1); Sodium 137 mmol/L (135-145); Total Bilirubin 0.6 mg/dl (0.2-1.3); Total Protein 7.4 g/dl (6.3-8.2); eGFR > 60.00
--- NOTE | 2023-11-26 11:51 | W.PN.ID1 ---
Date of Service
Date of Service: November 26, 2023
Today's Communication
- bone marrow biopsy completed - dry tap and limited sample; in this case favor using available sample for testing as directed by oncology, parvovirus testing would need a minimum of 0.5 mL. If malignancy ruled out a viral infectious process could
have been the cause and care would be supportive, would not recommend further testing
ID service will no longer actively follow this patient please recall for further questions
Assessment / Plan
Severe anemia - improved
- haptoglobin normal, unlikely Babesia without clear evidence of hemolysis
- parvovirus a consideration, low reticulocyte count is supportive, self limited and testing would not impact management from my perspective
- bone marrow biopsy completed - dry tap and limited sample; in this case favor using available sample for testing as directed by oncology, parvovirus testing would need a minimum of 0.5 mL. If malignancy ruled out a viral infectious process could
have been the cause and care would be supportive, would not recommend further testing
ID service will no longer actively follow this patient please recall for further questions
Chief Complaint
-: Other (possible viral infection)
Subjective / Review of Systems
afebrile
bp hypertensive
withtou leukocytosis
blasts persist
limited sample available from the bone marrow biopsy
haptoglobin normal
Vital Signs / Physical Exam
Vital Signs
Vital Signs
Temp Pulse Resp BP Pulse Ox
98 F 91 16 167/100 98
11/26/23 10:09 11/26/23 10:09 11/26/23 10:09 11/26/23 10:09 11/26/23 10:09
Physical Exam
Constitutional: No Acute Distress
Cardiovascular: Regular Rate
Pulmonary: Clear, Symmetric, Wheezes and Non Labored
Gastrointestinal: Non Distended
Skin: Dry; Negative Rash or Jaundice
Neurological: Awake
Objective Data
Lab Data
Lab Results
11/26/23 10:11
11/26/23 10:11
PT 14.1 Sec (11.4-14.6) 11/24/23 17:29
INR 1.11 11/24/23 17:29
APTT 28.5 Sec (23.4-35.0) 11/24/23 17:29
Estimated Creat Clear > 125 ml/min 11/26/23 10:11
Total Bilirubin 0.6 mg/dl (0.2-1.3) 11/26/23 10:11
AST 26 U/L (17-59) 11/26/23 10:11
ALT 41 U/L (0-50) 11/26/23 10:11
Alkaline Phosphatase 119 U/L (38-126) 11/26/23 10:11
Most recent labs reviewed.
Care Review
Plan reviewed with: Physician (Dr Tidwell and Dr Maldonado - limited sample)
--- NOTE | 2023-11-26 13:11 | W.PN.ONC ---
Today's Communication / Plan
-
Await path review of core biopsy, s/p BM bx 11/25, which was a dry tap.
Peripheral blasts and dry tap are suggestive of acute leukemia
Case reviewed w/ pathologist, anticipate prelim slide review 11/26 afternoon
Peripheral blood flow cytometry pending
Coags, fibrinogen normal
If path c/w acute leukemia, would favor hospital to hospital transfer to [facility], d/w patient and
If his anxiety is making it difficult to remain inpatient, could consider d/c home w/ close outpatient f/u
Monitor CBC daily
Impression
Impression
anemia
abnormal WBC differential
recent viral illness - pharyngitis - headache - fatigue
BM biopsy 11/26/23 - dry tap
Plan
Plan
Await path review of core biopsy, s/p BM bx 11/25, which was a dry tap.
Peripheral blasts and dry tap are suggestive of acute leukemia
Case reviewed w/ pathologist, anticipate prelim slide review 11/26 afternoon
Peripheral blood flow cytometry pending
Coags, fibrinogen normal
If path c/w acute leukemia, would favor hospital to hospital transfer to [facility], d/w patient and
If his anxiety is making it difficult to remain inpatient, could consider d/c home w/ close outpatient f/u
Monitor CBC daily
Subjective/Objective
Subjective/Objective
BM biopsy done today, tolerated well, though dry tap
Vital Signs:
Vital Signs
Temp Pulse Resp BP Pulse Ox
98 F 90 16 170/103 98
11/26/23 11:25 11/26/23 11:25 11/26/23 11:25 11/26/23 12:00 11/26/23 11:25
Lab Results:
Laboratory Data
WBC 6.0 10^3/uL (4.8-10.8) 11/26/23 10:11
Hgb 9.0 g/dL (13.0-18.0) L 11/26/23 10:11
Plt Count 356 10^3/uL (130-400) 11/26/23 10:11
PT 14.1 Sec (11.4-14.6) 11/24/23 17:29
INR 1.11 11/24/23 17:29
APTT 28.5 Sec (23.4-35.0) 11/24/23 17:29
eGFR > 60.00 11/26/23 10:11
--- NOTE | 2023-11-26 13:28 | W.PN.HOSP.TC ---
Today's Communication/Plan
-
Follow HH
Follow BMBx report
Assessment / Plan
Assessment / Plan
#Symptomatic severe anemia -heme-negative and no iron deficiency. Hemodynamically stable. With abnormal blood smear concerning about bone marrow dysfunction. Mildly elevated LDH but no other evidence of hemolysis-bilirubin normal. Haptoglobin
pending. S/p transfusion with improvement in symptoms.
Drop in HH noted -no external bleeding . With BM in question and low HH , l transfused one more unit 11/24; HH up.
#Peripheral blast-patient with significant shift in the left side including blasts. Differential also shows promyelocytes, myelocytes, and metamyelocytes. Unclear if reactive or primary bone marrow dysfunction. He recently had a severe acute
pharyngitis which is now resolved. Leukemia/lymphoma panel requested.
No palpable spleen. No cervical lymphadenopathy.
s/p BM biopsy 11/25 -follow results
#Acute self-limiting severe pharyngitis-now resolved. Asymptomatic. Patient with mild abnormal LFTs on admission noted. Monospot negative. EBV serologies pending. Patient does not think he has HIV-did not consent for blood test.
#Mild transaminitis
AST 34, ALT 56, alk phos 137; now normalized.
#HTN�benign
Uncontrolled on admission. Patient tells me he was on a combination medication for blood pressure which he was not compliant with. Lisinopril was just added back by PCP.
- cw Cardizem 180 mg.
-Increased lisinopril 20 mg daily to BID
#RBBB
#Cervical DDD with radiculopathy C5-C6 level
#Cervical stenosis
#HLD
No current meds
DVT prophylaxis
SCDs
Full code
dw
dw Dr Good year- would favor waiting for prelim report tomorrow prior to dc
Anticipated Discharge: Within 24 hours
Subjective/Interval History
-
Date of Service: November 26, 2023
s/p BM biopsy
Feels ok
Denies weakness/fatigue/shortness of breath or chest pains.
Objective Data
-
Labs:
Laboratory Results
11/26/23
10:11
WBC 6.0
Hgb 9.0 L
Hct 25.9 L
Plt Count 356
Sodium 137
Potassium 4.3
Chloride 106
Carbon Dioxide 25
BUN 22 H
Creatinine 0.6 L
Glucose 82
Calcium 9.3
Total Bilirubin 0.6
AST 26
ALT 41
Alkaline Phosphatase 119
Vital Signs:
Vital Signs
Temp Pulse Resp BP Pulse Ox
98 F 92 16 165/92 98
11/26/23 11:25 11/26/23 13:21 11/26/23 11:25 11/26/23 13:21 11/26/23 11:25
I&O
11/25/23 11/26/23 11/27/23
06:59 06:59 06:59
Intake Total 2099 1690 / 1690 150 / 150
Balance 2099 1690 / 1690 150 / 150
Review of Systems
-
Constitutional: Denies Fever or Chills
Neuro: Denies Dizzy
Physical Exam
-
General: No Apparent Distress
HEENT: Moist Mucous Membranes
Respiratory: Clear to Auscultation
Cardiac: Regular Rhythm and S1/S2
Neuro: AO x 3
Psych: Calm
Data Reviewed
-
Labs: Labs Reviewed by me
[2023-11-27 03:55] VITALS: BP 154/96
--- NOTE | 2023-11-27 04:53 | DOWNTIME ---
There was a [employer] Downtime on 11/27/2023 from 0100 to 11/27/2023 at 0439. Downtime documentation of patient's care, including medication administrations, has been reconciled in the electronic record per guidelines. Refer to the
patient's paper chart under the miscellaneous tab to see printed paper medication records and downtime forms.
[2023-11-27 07:35] VITALS: BP 170/103
--- NOTE | 2023-11-27 08:31 | CM ---
Late entry from 11/26/23: Patient seen bedside, reports no concerns. CM will follow for discharge planning needs.
Plan; home no needs likely.
[2023-11-27] MEDS: ZESTRIL 20 MG PO (08:48)
[2023-11-27] MEDS: CARDIZEM CD 180 MG PO (08:49)
[2023-11-27 08:51] LABS: Hematocrit 24.7 % (39.0-52.0); Hemoglobin 8.5 g/dL (13.0-18.0); Mean Corp Hgb Conc. 34.4 g/dL (33.0-37.0); Mean Corpuscular Hgb 29.9 pg (27.0-31.0); Mean Platelet Volume 10.2 fL (7.4-10.4); Nucleated Red Blood Cells % 0 % (-); Platelet Count 306 10^3/uL (130-400); Red Blood Cell Count 2.84 10^6/uL (4.70-6.10); Red Cell Dist. Width 13.5 % (11.5-14.5); White Blood Cell Count 5.5 10^3/uL (4.8-10.8)
--- NOTE | 2023-11-27 09:04 | W.PN.ONC2 ---
Today's Communication / Plan
-
Discussed with attending. Patient as well. Pathology is still pending. Will talk to pathologist later this morning and if not going to be back today, recommend discharge with outpatient follow-up.
Impression
Impression
anemia
abnormal WBC differential
recent viral illness - pharyngitis - headache - fatigue
BM biopsy 11/26/23 - dry tap
Plan
Plan
Await path review of core biopsy, s/p BM bx 11/25, which was a dry tap.
Peripheral blasts and dry tap are suggestive of acute leukemia
Case reviewed w/ pathologist, anticipate prelim slide review 11/26 afternoon
Peripheral blood flow cytometry pending
Coags, fibrinogen normal
If path c/w acute leukemia, will need induction treatment at [facility]. Believe pathology may not be available until Saturday so reasonable for discharge home with admission from [facility].
If his anxiety is making it difficult to remain inpatient, could consider d/c home w/ close outpatient f/u
Monitor CBC daily
Subjective/Objective
Chief Complaint
ACS Heme Onc
Subjective
Patient very anxious and actually hypertensive. Otherwise asymptomatic without fevers or bleeding. Has multiple questions about treatment in case this ends up being acute leukemia.
Vital Signs:
Vital Signs
Temp Pulse Resp BP Pulse Ox
97.9 F 89 16 170/100 99
11/27/23 07:35 11/27/23 08:49 11/27/23 07:35 11/27/23 08:49 11/27/23 07:35
Lab Results:
Laboratory Data
WBC 6.0 10^3/uL (4.8-10.8) 11/26/23 10:11
Hgb 9.0 g/dL (13.0-18.0) L 11/26/23 10:11
Plt Count 356 10^3/uL (130-400) 11/26/23 10:11
PT 14.1 Sec (11.4-14.6) 11/24/23 17:29
INR 1.11 11/24/23 17:29
APTT 28.5 Sec (23.4-35.0) 11/24/23 17:29
eGFR > 60.00 11/26/23 10:11
Physical Exam
HEENT: Moist Mucous Membranes
Cardiology: S1 and S2
Pulmonary: Clear
GI: Soft
Extremities: No C/C/E
[2023-11-27 09:52] LABS: Band Neutrophils 10 % (0-3)
[2023-11-27 09:53] LABS: Absolute Neutrophils -Man Diff 2.7 10^3/uL (1.4-6.5); Hypochromasia Slight; Lymphocytes 30 % (20-51); Monocytes 10 % (2-9); Myelocytes 10 % (-); Normal RBC Morphology No; Platelets Checked Yes; Segmented Neutrophils 40 % (42-75); Total Cells Counted 100
[2023-11-27 09:54] LABS: ALT (SGPT) 38 U/L (0-50); AST (SGOT) 24 U/L (17-59); Albumin 3.8 g/dl (3.5-5.0); Alkaline Phosphatase 110 U/L (38-126); Blood Urea Nitrogen 24 mg/dl (9-20); Calcium 9.3 mg/dl (8.4-10.2); Carbon Dioxide 22 mmol/L (22-30); Chloride 105 mmol/L (98-107); Estimated Creatinine Clearance 124 ml/min; Glucose 88 mg/dl (70-99); Potassium 4.9 mmol/L (3.5-5.1); Sodium 138 mmol/L (135-145); Total Bilirubin 0.6 mg/dl (0.2-1.3); Total Protein 7.2 g/dl (6.3-8.2); eGFR > 60.00
--- NOTE | 2023-11-27 10:56 | W.PN.HOSP.TC ---
Today's Communication/Plan
-
DC
Assessment / Plan
Assessment / Plan
#Symptomatic severe anemia -heme-negative and no iron deficiency. Hemodynamically stable. With abnormal blood smear concerning about bone marrow dysfunction. Mildly elevated LDH but no other evidence of hemolysis-bilirubin normal. Haptoglobin
normal. S/p transfusion with improvement in symptoms.
#Peripheral blast-patient with significant shift in the left side including blasts. Differential also shows promyelocytes, myelocytes, and metamyelocytes. Unclear if reactive or primary bone marrow dysfunction. He recently had a severe acute
pharyngitis which is now resolved. Leukemia/lymphoma panel requested.
No palpable spleen. No cervical lymphadenopathy.
s/p BM biopsy 11/25 -follow results
Discussed with fast food fry cook today who has only prelim report and may not be suggestive of leukemia but too early to tell. And this was discussed by fast food fry cook with patient.
#Acute self-limiting severe pharyngitis-now resolved. Asymptomatic. Patient with mild abnormal LFTs on admission noted. Monospot negative. EBV serologies pending. Patient does not think he has HIV-did not consent for blood test.
#Mild transaminitis
AST 34, ALT 56, alk phos 137; now normalized.
#HTN�benign
Uncontrolled on admission. Patient tells me he was on a combination medication for blood pressure which he was not compliant with. Lisinopril was just added back by PCP.
- cw Cardizem 180 mg.
-Increased lisinopril 20 mg daily to BID
#RBBB
#Cervical DDD with radiculopathy C5-C6 level
#Cervical stenosis
#HLD
No current meds
DVT prophylaxis
SCDs
Full code
dw patient and fast food fry cook.
DC [id number] rest of the bone marrow report with hematology as outpatient.
Gave prescription for repeat CBC
Total time of discharge 32 minutes
Anticipated Discharge: Today
Subjective/Interval History
-
Date of Service: November 27, 2023
Feeling much improved. Denies any fatigue today. No shortness of breath or chest pain.
Objective Data
-
Labs:
Laboratory Results
11/27/23
08:18
WBC 5.5
Hgb 8.5 L
Hct 24.7 L
Plt Count 306
Sodium 138
Potassium 4.9
Chloride 105
Carbon Dioxide 22
BUN 24 H
Creatinine 0.7
Glucose 88
Calcium 9.3
Total Bilirubin 0.6
AST 24
ALT 38
Alkaline Phosphatase 110
Vital Signs:
Vital Signs
Temp Pulse Resp BP Pulse Ox
97.9 F 89 16 170/100 99
11/27/23 07:35 11/27/23 08:49 11/27/23 07:35 11/27/23 08:49 11/27/23 07:35
I&O
11/26/23 11/27/23 11/28/23
06:59 06:59 06:59
Intake Total 1690 / 1690 1290 / 1290
Balance 1690 / 1690 1290 / 1290
Review of Systems
-
Constitutional: Denies Fever or Chills
EENT: Denies Sore Throat
Respiratory: Denies Cough or Trouble Breathing
Cardiac: Denies Chest Pain
Abdomen/GI: Denies Nausea or Vomiting
Neuro: Denies Dizzy or Headache
Physical Exam
-
General: No Apparent Distress
HEENT: Moist Mucous Membranes
Respiratory: Non Labored Respirations and Accessory Resp Muscle Use
Cardiac: Regular Rhythm and S1/S2
Neuro: AO x 3
Data Reviewed
-
Labs: Labs Reviewed by me
[2023-11-27 11:02] VITALS: BP 174/99
--- NOTE | 2023-11-27 11:02 | W.DS.TRANS ---
DC Summary - Flooring Installer
-
Discharge Instructions:
Discharge Diagnosis/Procedures Severe anemia with peripheral blasts; BM report
pending
Diet Regular
Activity As tolerated
Driving Restrictions As prior to admission
Bathing Restrictions None
Blood Work CBC blood work in one week
Instructions:
Stand-Alone Forms:
Changes to Home Medications: Yes
Discharge Medications:
DC Medications w/original date entered in [facility]
lisinopril 20 mg tablet 20 mg PO DAILY Blood Pressure 11/23/23
diltiazem HCl 240 mg capsule,extended release 24 hr (Cardizem CD) 240 mg PO DAILY #30 caps 11/27/23
lisinopril 20 mg tablet 20 mg PO BID #60 tabs 11/27/23
Home Medication Changes
Increased dose of lisinopril
New medication-Cardizem CD
Pending Results: Yes (BM report)
--- NOTE | 2023-11-27 12:07 | CM ---
CM reviewed chart, patient discharge home no needs. CM will continue to follow for discharge planning needs.
Plan; home no needs.
== END 2023-11-27 11:57 | disposition home or self-care (01) | DRG 812 ==
LOC: 4 EAST ACU 17:30
PROVIDERS: Clinical Nurse Specialist Family Health; Nurse Practitioner; Radiology Diagnostic Radiology; ADMITTING PHYSICIAN Internal Medicine; CONSULT PHYSICIAN Internal Medicine Hematology & Oncology; CONSULT PHYSICIAN Student in an Organized Health Care Education/Training Program; EMERGENCY PHYSICIAN Emergency Medicine; FAMILY PHYSICIAN Internal Medicine
PROC: 30233N1 Transfusion of Nonautologous Red Blood Cells into Peripheral Vein, Percutaneous Approach (ICD-10-PCS; 2023-11-23)
PROC: 07DR3ZX Extraction of Iliac Bone Marrow, Percutaneous Approach, Diagnostic (ICD-10-PCS; 2023-11-26)
DX: D64.9 Anemia, unspecified (principal); D75.839 Thrombocytosis, unspecified; E78.5 Hyperlipidemia, unspecified; J02.9 Acute pharyngitis, unspecified; D75.9 Disease of blood and blood-forming organs, unspecified
CPT/HCPCS: 88305; 88311; 88312; 36430; 38222; 77012; 80053; 80061; 82607; 82746; 83010; 83540; 83550; 83615; 85025; 85045; 85384; 85610; 85730; 86308; 86663; 86664; 86665; 86850; 86900; 86901; 86920; 87811; 88313; 88341; 88342; 93005; 96360; 97161; 99285; P9016

== ENCOUNTER → 2023-11-30 09:06 | Outpatient (REF) | payer BC, SELFPAY ==
[2023-11-30 09:50] LABS: Mean Corp Hgb Conc. 34.8 g/dL (33.0-37.0); Mean Corpuscular Volume 86.1 fL (80.0-94.0); Mean Platelet Volume 10.4 fL (7.4-10.4); Nucleated Red Blood Cells % 0 % (-); Platelet Count 220 10^3/uL (130-400); Red Blood Cell Count 2.67 10^6/uL (4.70-6.10); Red Cell Dist. Width 13.1 % (11.5-14.5); White Blood Cell Count 3.3 10^3/uL (4.8-10.8)
[2023-11-30 11:45] LABS: Absolute Neutrophils -Man Diff 0.8 10^3/uL (1.4-6.5); Atypical Lymphocytes 5 %; Band Neutrophils 6 % (0-3); Lymphocytes 50 % (20-51); Metamyelocytes 7 % (-); Monocytes 9 % (2-9); Myelocytes 2 % (-); Segmented Neutrophils 21 % (42-75)
[2023-11-30 11:46] LABS: Normal RBC Morphology Yes; Platelets Checked YES; Total Cells Counted 100
== END ==
LOC: REG 09:06
PROVIDERS: ATTENDING PHYSICIAN Internal Medicine; FAMILY PHYSICIAN Internal Medicine; REFERRING PHYSICIAN Internal Medicine Hematology & Oncology
DX: D64.9 Anemia, unspecified (principal)
CPT/HCPCS: 36415; 85025

== ENCOUNTER 2023-12-07 15:58 | Inpatient (IN) | payer BC, SELFPAY ==
[2023-12-07] VITALS (14 sets, daily range): BP systolic 133–173; BP diastolic 78–98; BMI 25.6; BMI 22.8
[2023-12-07 12:37] LABS: % Lymphocytes 86.5 % (20.5-51.1); % Monocytes 6.3 % (1.7-9.3); % Neutrophils 7.2 % (42.2-75.2); Absolute Lymphocytes 0.8 10^3/uL (1.2-3.4); Absolute Monocytes 0.1 10^3/uL (0.1-0.6); Mean Corp Hgb Conc. 35.7 g/dL (33.0-37.0); Mean Corpuscular Hgb 29.8 pg (27.0-31.0); Mean Corpuscular Volume 83.4 fL (80.0-94.0); Mean Platelet Volume 10.1 fL (7.4-10.4); Nucleated Red Blood Cells % 0 % (-); Platelet Count 143 10^3/uL (130-400); Red Blood Cell Count 2.35 10^6/uL (4.70-6.10); Red Cell Dist. Width 12.3 % (11.5-14.5)
[2023-12-07 12:40] LABS: Hematocrit 19.6 % (39.0-52.0)
[2023-12-07 12:51] LABS: ALT (SGPT) 45 U/L (0-50); AST (SGOT) 28 U/L (17-59); Albumin 4.7 g/dl (3.5-5.0); Alkaline Phosphatase 113 U/L (38-126); Blood Urea Nitrogen 22 mg/dl (9-20); Calcium 9.3 mg/dl (8.4-10.2); Carbon Dioxide 23 mmol/L (22-30); Chloride 99 mmol/L (98-107); Estimated Creatinine Clearance > 125 ml/min; Glucose 106 mg/dl (70-99); Potassium 4.3 mmol/L (3.5-5.1); Sodium 134 mmol/L (135-145); Total Bilirubin 1.1 mg/dl (0.2-1.3); Total Protein 7.8 g/dl (6.3-8.2); eGFR > 60.00
[2023-12-07 13:11] LABS: APTT 31.3 Sec (23.4-35.0); INR 1.07; PT 13.8 Sec (11.4-14.6)
[2023-12-07 13:12] LABS: Absolute Neutrophils 0.1 10^3/uL (1.4-6.5)
[2023-12-07] MEDS: MAXIPIME 2000 MG IV ×2 (14:01→22:35)
[2023-12-07 14:51] LABS: Urine Albumin Negative (Neg - Trace); Urine Bilirubin Negative (Negative); Urine Character Clear (Clear); Urine Color Yellow; Urine Glucose Negative (Negative); Urine Ketone 1+ (Negative); Urine Leukocyte Negative (Negative); Urine Nitrite Negative (Negative); Urine Occult Blood Negative (Negative); Urine Specific Gravity 1.015 (<1.030); Urine Urobilinogen Negative (Neg - 1+)
--- NOTE | 2023-12-07 15:16 | HPS.HSE ---
Family Physician
-
Family Physician: Jose Maria Longoria
Chief Complaint
-
anemia
History of Present Illness
The patient is a 58 yo male with PMH significant for HTN, who was admitted here 11/22 to 11/26 due to symptomatic severe anemia without iron deficiency and heme negative stool, abnormal blood smear, no evidence for hemolysis at that time, status post
blood transfusion (he had severe URI that he thought was the flu earlier in the month), seen by ID and Hematology s/p core biopsy, bone marrow biopsy 11/25 dry tap (results pending), who presents back to the ED sent by PCP for abnormal labs. He had a
fever at home (101.2 forehead) and temp in ED 99.9. HR 114. Hgb 7.0 down from 9.0 on 11/25 after blood transfusions. He has had slight weight loss since the URI, and has gained maybe 3 pounds since the weight loss. No night sweats. He has new
tenderness in right axilla with new lymph node as of 1-2 days ago. No CP, no SOB, no n/v/d, no dysuria, no skin rash, no bleeding.
Medical History
Past Medical History
Past Medical History: Reports HTN and Hypercholesterolemia
Past Surgical History: Reports Other
Additional Past Surgical History:
Left shoulder AC ligament reconstruction August 2008
C5-6, C6-7 discectomy
Social History
Tobacco: Non-smoker
Alcohol: Occasional
Drug: None
Personal:
Living: With Family ()
Employment: Employed
Family History
Family History: Other (Mother living history of Parkinson's father prostate cancer age 83 history of DM2, HTN)
Allergies / Home Medications
Allergies reflects when Allergies were last updated in [facility].
Home Medications with original date entered in [facility]
Allergy/Medication List:
Allergies
Allergy/AdvReac Type Severity Reaction Status Date / Time
No Known Allergies Allergy Verified 12/07/23 12:06
Home Medications
diltiazem HCl 240 mg capsule,extended release 24 hr (Cardizem CD) 240 mg PO DAILY #30 caps 11/27/23 (new med as of 11/2023)
lisinopril 20 mg tablet 20 mg PO BID #60 tabs 11/27/23
Review of Systems
-
A 12 point ROS was completed and negative except as noted: Yes
Physical Exam
Vital Signs
Vital Signs
Temp Pulse Resp BP Pulse Ox
99.9 F 114 19 158/79 97
12/07/23 12:08 12/07/23 13:45 12/07/23 13:45 12/07/23 13:00 12/07/23 12:08
Physical Exam
General: No Apparent Distress, Comfortable and Conversant
HEENT: NormoCephalic, Anicteric and Moist mucous membranes
Respiratory: Clear
Cardiac: S1/S2 and Tachycardia
GI: Soft, Non Tender and Non Distended
Musculoskeletal: No Clubbing, No Cyanosis and No Edema
Skin: Warm, Dry and Other (right axilla acutely ttp, likely lymph node tender, enlarged)
Neuro: AO x 3, No Motor Deficits and Nonfocal/grossly intact
Psych: Anxious (due to stress related to waiting for results of biopsy)
Laboratory Results
-
12/07/23 12:21
12/07/23 12:21
Laboratory Results
PT 13.8 Sec (11.4-14.6) 12/07/23 12:21
INR 1.07 12/07/23 12:21
APTT 31.3 Sec (23.4-35.0) 12/07/23 12:21
Total Bilirubin 1.1 mg/dl (0.2-1.3) 12/07/23 12:21
AST 28 U/L (17-59) 12/07/23 12:21
ALT 45 U/L (0-50) 12/07/23 12:21
Alkaline Phosphatase 113 U/L (38-126) 12/07/23 12:21
Impression/Plan
-
IMPRESSION:The patient is a 58 yo male with PMH significant for HTN, who was admitted here 11/22 to 11/26 due to symptomatic severe anemia without iron deficiency and heme negative stool, abnormal blood smear, no evidence for hemolysis at that time,
status post blood transfusion (he had severe URI that he thought was the flu earlier in the month), seen by ID and Hematology s/p core biopsy, bone marrow biopsy 11/25 dry tap (results pending), who presents back to the ED sent by PCP for abnormal
labs. He had a fever at home (101.2 forehead) and temp in ED 100.6. HR 114. Hgb 7.0 down from 9.0 on 11/25 after blood transfusions. He has had slight weight loss since the URI, and has gained maybe 3 pounds since the weight loss. No night sweats. He
has new tenderness in right axilla with new lymph node as of 1-2 days ago. No CP, no SOB, no n/v/d, no dysuria, no skin rash, no bleeding.
# Worsening anemia , symptomatic hgb 7.0, no active bleeding
-Blood consent on chart
-1 u PRBC transfusion ordered in ED, waiting on transfusion
-monitor serial H & H
-peripheral smear
-Hematology consultation placed
# Febrile neutropenia (101.2 fever at home, afebrile (99.9 here), ANC 100 WBC 1.0
-all cell lines dropping from prior- concern is for leukemia vs post-infectious etiology
-bone marrow bx pending results at this time
-ID consulted, Heme consulted, rec is to start IV Cefepime after obtaining cxs.
-Blood cx obtained in ED prior to abx
-Tylenol prn and pre-treatment before transfusion
#Right axilla pain/lymph node
-US right axilla pending r/o abscess, lesion
#Peripheral blast recent admission-patient with significant shift in the left side including blasts. Currently neutrophils 0.1 and absolute lymphocytes low
-marrow abnormal/myelofibrosis-pending pathology
-Discuss with ID/Heme , waiting bone marrow bx from 11/25
#Acute self-limiting severe pharyngitis-now resolved, early November. Asymptomatic. Of note from prior hospitalization- Patient does not think he has HIV-did not consent for blood test.
#HTN�benign
Uncontrolled on admission & lisinopril 20 mg BID
#RBBB, hx of
#Cervical DDD with radiculopathy C5-C6 level
#Cervical stenosis
#HLD
-Full Code
-DVT proph - PCDs
--- NOTE | 2023-12-07 15:42 | ED.GENMED ---
History of Present Illness
General
Chief Complaint: Abnormal Lab Value
Source: patient and family
Exam Limitations: none
Time Seen by Provider: 12/07/23 13:01
Travel History
Have you had any contact with someone who has COVID-19?: No
Do you have any symptoms of coronavirus? Fever > 100 degrees, chills, cough, shortness of breath, sore throat, loss of taste or smell, muscle aches, or headache?: No
History of Present Illness
History of Present Illness:
58-year-old male recent admission for new onset anemia. Momo-Jackson virus titers positive. Bone marrow pending. Was discharged after multiple transfusions. Patient has had a drop in his hemoglobin down to 7.0. Now also neutropenic. Does have
a low-grade fever at home to 101. No other focal infectious symptoms.
Past History
Past History
ED Past Medical History: Other (Anemia); Negative HTN or Hypercholesterolemia
ED Past Surgical History: Negative Cardiac
Social History
Tobacco: Non-smoker
Alcohol: None
Drug: None
Personal:
Living: with family
Employment: Employed
Family History
Family History: Other
Review of Systems
Review of Systems
All Other Systems: Not applicable
Respiratory: Reports no symptoms
Cardiac: Reports no symptoms
Phy Exam
Physical Exam
Physical Exam:
GENERAL: Alert and oriented in no apparent distress
EYE: Orbits normal.
NECK: Supple
ENT: Pharynx without erythema
CARDIAC: Mildly tachycardic and regular no murmur
LUNGS: Clear breath sounds,normal
ABDOMEN: Soft, without focal tenderness or distention
NEUROLOGICAL: Alert and oriented , grossly non-focal
SKIN: Warm and dry, no rash or lesion, no discoloration, skin intact.
MUSCULOSKELETAL: No edema,no deformity.Good color
PSYCH: Normal and appropriate interaction.
Course
Orders/Labs/Results
Orders:
Orders
12/07/23 Lunch
Cholesterol Lowering
Cholesterol Lowering: Sodium, 2 Gram
12/07/23 12:21
Type+Screen Urgent
Complete Blood Count/With Diff Urgent
Comprehensive Metabolic Panel Urgent
PTT Urgent
Prothrombin Time Urgent
12/07/23 13:46
Cefepime HCl [Maxipime] 2,000 mg IV NOW STA
12/07/23 13:47
* Blood Bank Products Urgent
Blood Bank Products: *Packed RBC Leuko(PRBC's)
Quantity: 1
Transfuse Today: Yes
Reason: Anemia
IV Insert/Care/Rem.- Treatment PRN
12/07/23 13:56
Urinalysis Reflex To Culture Urgent
Date Specimen was Collected: 12/07/23
Time Specimen was Collected: 13:45
Blood Culture Q30M
CARMEN Source: Blood/Venous
Specimen Description:
Blood Culture Q30M
CARMEN Source: Blood/Venous
Specimen Description:
12/07/23 14:00
Sterile Water [Sterile Water For Injection] 10 ml .ROUTE .STK-MED ONE
12/07/23 15:41
Acetaminophen [Tylenol] 1,000 mg PO NOW STA
12/07/23 15:48
Admit/Transfer Patient As Directed
Co-Sign Provider:
Level of Care: Inpatient admission
Assign to:: Telemetry
Physician / Group: Harpreet/hospitalist
Diagnosis: neutropenic fever
Reason for Telemetry: Arrhythmia
Date to Stop Telemetry: 12/10/23
Time to Stop Telemetry: 11:00
Reason for Hospitalization: neutropenic fever
Expected length of stay greater than two midnights?: Yes
ELOS- Estimated Length of Stay in days: 3
I certify the patient meets the requirements for IP care: Yes
Code Status As Directed
Resuscitation Status: Full Code
12/07/23 17:20
0.9% Sodium Chloride 1000 ml [Nss] 1,000 ml IV 125 mls/hr
Acetaminophen [Tylenol] 650 mg PO Q4HPRN PRN
Bisacodyl [Dulcolax] 10 mg RECTAL [id number] PRN
Cefepime HCl [Maxipime] 2,000 mg IV Q8H
Docusate W/Senna [Senokot-S] 1 tablet PO BIDPRN PRN
Polyethylene Glycol Powder [Miralax] 17 grams PO DAILYPRN PRN
12/07/23 17:20
INFECTIOUS DISEASE CONSULT Routine
Consulting Provider: Candy Valdivia
Was physician already notified: Yes
Reason for consult: neutropenic fever
ONCOLOGY CONSULT Routine
Consulting Provider: Simon Hussein
Was physician already notified: Yes
Reason for consult: anemia, neutropenia, abnormal peripheral smear, neutropenic fever
Activity As Directed
Activity Level: As Tolerated
Pneumatic Compression Sleeves As Directed
Type: Knee high
Vital Signs As Directed
Frequency: Per unit guidelines
Pulse Ox/spot Check [RESP] Routine
Quantity: 1
DX Deep Vein Thrombosis Video Routine
12/07/23 20:00
Lisinopril [Zestril] 20 mg PO BID
12/08/23 06:00
Complete Blood Count/With Diff IN AM
Comprehensive Metabolic Panel IN AM
12/08/23 08:00
Diltiazem Extended Release [Cardizem Cd] 240 mg PO DAILY
12/10/23 11:00
DC Protocol for Telemetry ONCE
Abnormal Lab Results
12/07/23 12/07/23
12:21 13:56
WBC 1.0 L* 10^3/uL
(4.8-10.8)
RBC 2.35 L 10^6/uL
(4.70-6.10)
Hgb 7.0 L g/dL
(13.0-18.0)
Hct 19.6 L* %
(39.0-52.0)
Absolute Neuts (auto) 0.1 L* 10^3/uL
(1.4-6.5)
Absolute Lymphs (auto) 0.8 L 10^3/uL
(1.2-3.4)
Neutrophils % 7.2 L %
(42.2-75.2)
Lymphocytes % 86.5 H %
(20.5-51.1)
Sodium 134 L mmol/L
(135-145)
BUN 22 H mg/dl
(9-20)
Glucose 106 H mg/dl
(70-99)
Urine Ketones 1+ A
(Negative)
Crossmatch IS Only See Detail
12/07/23 12:21
12/07/23 12:21
Vital Signs
Initial and Last Documented VS:
Initial Vital Signs
Temp Pulse Resp BP Pulse Ox
99.9 F 118 18 154/98 97
12/07/23 12:08 12/07/23 12:08 12/07/23 12:08 12/07/23 12:08 12/07/23 12:08
Last Documented Vital Signs
Temp Pulse Resp BP Pulse Ox
101.2 F H 111 15 153/84 96
12/07/23 16:22 12/07/23 16:30 12/07/23 16:30 12/07/23 16:00 12/07/23 15:45
*Pulse Oximetry
Patient hypoxic: no
*Fire Crew Specialist Interpretation
Rate: tachycardiac
Interpretation: abnormal
Heart Rate: 110
Rhythm: sinus
*Critical Care Note
Total Time (30-74mins, 75-104mins- exclusive of procedures): Not Applicable
Data Reviewed
Review of Other/Old Records Reveals: Labs, Records and Testing
Update Note
Update Note:
After initial evaluation I looped in hematology oncology infectious disease and hospitalist for initial evaluation and plan. Blood cultures were ordered. Cefepime was ordered for fever and neutropenia. No clinical source of bacterial infection at
this time.
1545.... Patient does have a low-grade temperature of 100.6. The hospitalist contacted hematology oncology about whether to transfuse him. They did recommend still doing the transfusion.
ED Attending Note
-
Portions of this chart may have been created with voice recognition software.� Occasional wrong word or��sound alike� substitutions may have occurred due to the inherent limitations of voice recognition software.
Discharge Plan
Departure
Patient Disposition: Admit
Date of Disposition: 12/07/23
Time of Disposition: 13:48
Presentation/result/management discussed w/ accepting MD/DO: Hematology/ID
Discharge Problem:
New onset neutropenia, Neutropenic fever, Progressive and symptomatic anemia
Interventions
Interventions:
*Risk Screen - Suicide Last Done: 12/07/23 12:31
*General Assessment Last Done: 12/07/23 12:31
*Neglect/Abuse Screening Last Done: 12/07/23 12:31
ED- Fall Risk Assessment Last Done: 12/07/23 12:31
[2023-12-07] MEDS: TYLENOL 1000 MG PO (15:48)
--- NOTE | 2023-12-07 16:48 | CON.ID ---
Consultation
-
Date/Time Consultation Requested: December 07, 2023 1329
Date/Time Consultation Performed: December 07, 2023 1650
Requesting Provider: Dr. Ayden Bender
Performing Provider: Dr. Candy Valdivia
Reason for Consultation: Neutropenic fever
Chief Complaint / Past History
Chief Complaint
Fever and low blood counts
History of Present Illness
58-year-old male with history of hypertension who was recently hospitalized from November 22 to November 26 with severe anemia hemoglobin 6.0 with peripheral blasts. He was seen by infectious disease and infection workup negative. He underwent core bone
marrow renal biopsy on November 25 for which the result is still pending. There was concern for acute leukemia as per heme-onc. He had follow-up outpatient lab work done on November 29 which showed new leukopenia, wbc of 3.3, absolute neutrophil count
800, hemoglobin slightly lower at 8.0 as compared to 8.5 when he left hospital. His was concerned and asked for repeat labs yesterday. He received a call that he should come to the ER to today due to neutropenia. Patient also reports that he
developed fever yesterday. He also noted a painful lump on the right axilla this morning. No cough. No shortness of breath. No headache, sore throat, or head congestion. No nausea vomiting or diarrhea. No rash. 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 Has 1 dog at home. No ill contacts.
Past History
Additional Past Medical History:
Hypertension
HLD
C5-6, C6-7 discectomy
Left shoulder surgery
Allergy History:
No Known Allergies Allergy (Verified 12/07/23 12:06)
Medications Reviewed: Yes
Current Antibiotics:
cefepime
Social History
Tobacco: Non-Smoker
Alcohol: Occasional
Drug: None
Personal:
Living: With Family (1 dog)
Employment: Employed (Sales)
Family History
Family History: Not Pertinent
Review of Systems
Review of Systems
General: Fever and Other (+ sweats today); Negative Chills or Change in Appetite
HEENT: Negative Stiff Neck, Sinus Problems, Headache or Pharyngitis
Cardiovascular: Negative Chest Pain, Dyspnea, Edema or Palpitations
Respiratory: Negative Dyspnea or Cough
Gasteroenterology: Negative Nausea or Vomiting
Genital / Urological: Negative Dysuria or Flank Pain
Endocrine: Fatigue (mild)
Skin / Hair / Nails: Negative Rash
Neurological: Negative Headache or Dizziness
All systems: All other systems were reviewed and were negative
Vital Signs
Temp Pulse Resp BP Pulse Ox
101.2 F H 111 15 153/84 96
12/07/23 16:22 12/07/23 16:30 12/07/23 16:30 12/07/23 16:00 12/07/23 15:45
Selected Entries
12/07/23
15:45 12/07/23
16:22
Temp 100.6 F H 101.2 F H
Physical Exam
Physical Exam
Constitutional: No Acute Distress and Comfortable
Eyes: No Conjunctival Hemorrhage and Sclera Anicteric
Pharynx: Negative Benign
Oral: Negative No Thrush or No Ulcers
Lymph Nodes: Lymphadenopathy (Right axilla: large tender lymph node without erythema)
Cardiovascular: Regular Rate and S1/S2
Pulmonary: Clear; Negative Wheezes, Rales, Rhonchi, Coarse or Non Labored
Gastrointestinal: Soft, Non Tender, Non Distended and Normal Bowel Sounds
Genito-Urinary: Negative CVA Tenderness
Extremities: Negative Edema
Musculoskeletal: Negative Spinal Tenderness
Skin: Negative Rash
Neurological: AO x 3
Lab / Diagnostic Study Results
12/07/23 12:21
12/07/23 12:21
Abs Immat Gran (auto) 0.0 10^3/uL (0-0.05) 12/07/23 12:21
Absolute Neuts (auto) 0.1 10^3/uL (1.4-6.5) L* 12/07/23 12:21
Absolute Lymphs (auto) 0.8 10^3/uL (1.2-3.4) L 12/07/23 12:21
Absolute Monos (auto) 0.1 10^3/uL (0.1-0.6) 12/07/23 12:21
Absolute Basos (auto) 0.0 10^3/uL (0-0.2) 12/07/23 12:21
Immature Gran % 0.0 % (0-0.5) 12/07/23 12:21
Neutrophils % 7.2 % (42.2-75.2) L 12/07/23 12:21
Lymphocytes % 86.5 % (20.5-51.1) H 12/07/23 12:21
Monocytes % 6.3 % (1.7-9.3) 12/07/23 12:21
Eosinophils % 0.0 % (0-6) 12/07/23 12:21
Basophils % 0.0 % (0-2) 12/07/23 12:21
PT 13.8 Sec (11.4-14.6) 12/07/23 12:21
INR 1.07 12/07/23 12:21
Microbiology Results
Micro:
12/07/23 13:56 Blood Culture - Pending
Blood/Venous
12/07/23 13:56 Blood Culture - Pending
Blood/Venous
Assessment / Plan
# Neutropenic fever
# Recent severe anemia, peripheral blast s/p BM biopsy (dry tap) 11/25/22, result pending
now with neutropenia, plt count trending down, LAD, sweats concerning for acute leukemia/hematological malignancy
- UA negative.
-Follow blood cx's.
- Check CXR
- Agree with cefepime 2g IV q8h.
- Trend fevers, CBC.
--- NOTE | 2023-12-07 18:09 | PTCARENOTE ---
Pt. admitted to . [facility]. Tele monitor reading NSR. Pt. oriented to floor. Fever down. . said okay to start blood transfusion.
[2023-12-07] MEDS: ZESTRIL 20 MG PO (20:41)
[2023-12-07] MEDS: NSS 1000 IV (22:35)
[2023-12-07] MEDS: STERILE WATER FOR INJECTION 10 ML IV (22:35)
[2023-12-07] MEDS: TYLENOL 650 MG PO (23:46)
[2023-12-08] VITALS (10 sets, daily range): BP systolic 137–161; BP diastolic 70–92
[2023-12-08] MEDS: MAXIPIME 2000 MG IV ×3 (06:09→22:03)
[2023-12-08] MEDS: STERILE WATER FOR INJECTION 10 ML IV ×3 (06:09→22:03)
[2023-12-08 07:30] LABS: % Lymphocytes 87.3 % (20.5-51.1); % Monocytes 9.9 % (1.7-9.3); % Neutrophils 2.8 % (42.2-75.2); Absolute Lymphocytes 0.6 10^3/uL (1.2-3.4); Absolute Monocytes 0.1 10^3/uL (0.1-0.6); Mean Corp Hgb Conc. 35.9 g/dL (33.0-37.0); Mean Corpuscular Hgb 29.6 pg (27.0-31.0); Mean Corpuscular Volume 82.5 fL (80.0-94.0); Nucleated Red Blood Cells % 0 % (-); Red Blood Cell Count 2.23 10^6/uL (4.70-6.10); Red Cell Dist. Width 12.6 % (11.5-14.5)
[2023-12-08 07:32] LABS: Hematocrit 18.4 % (39.0-52.0); Hemoglobin 6.6 g/dL (13.0-18.0); White Blood Cell Count 0.7 10^3/uL (4.8-10.8)
--- NOTE | 2023-12-08 07:41 | CON.ONC ---
Impression
Impression
Neutropenic fever
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
Right axillary pain
Plan
Plan
Transfuse PRBC to maintain HgB > 7. Suspect another unit will me needed today.
Await cultures. Cont Cefepime for now.
Await BMBx path results suspected out later this week.
Patient History
History of Present Illness
Family Physician: Jose Maria Longoria
CC: Fever 101.2 with low WBC and anemia
HPI: 58 yo male admitted [facility] 11/22 to 11/26 due to symptomatic anemia concerning for suspected primary marrow process s/p bone marrow biopsy 11/25 dry tap (prelim myeloproliferative D/O but [employer] smears pending), who presents back to the ED sent
by PCP for abnormal labs. He had a fever at home (101.2 forehead) and temp in ED 99.9. No night sweats. He has new tenderness in right axilla with new lymph node as of 1-2 days ago. No CP, no SOB, no n/v/d, no dysuria, no skin rash, no bleeding.
Received 1 unit PRBC overnight and feels better. No further fevers > 100. Started on Cefepime pending blood cultures. No cough, dysuria, infectious symptoms other than fever.
Past-Medical/Surgical History
PMH: HTN, Hypercholesterolemia
PSH: Left shoulder AC ligament reconstruction August 2008, C5-6, C6-7 discectomy
SH:
Tobacco: Non-smoker
Alcohol: Occasional
Drug: None
Personal:
Living: With Family ()
Employment: Employed
Patient Medication
�Medication �Instructions �Recorded �Confirmed �Last Taken �Type
diltiazem HCl 240 mg 240 mg PO DAILY #30 caps 11/27/23 12/07/23 12/07/23 Rx
capsule,extended release 24 hr
(Cardizem CD)
lisinopril 20 mg tablet 20 mg PO BID #60 tabs 11/27/23 12/07/23 12/07/23 Rx
Active Medications
Generic Name Dose Route Start Last Admin
Trade Name Freq PRN Reason Stop Dose Admin
Acetaminophen 650 mg 12/07/23 17:20 12/07/23 23:46
Acetaminophen 325 Mg Tablet PO 01/04/24 17:19 650 mg
Q4HPRN PRN Administration
mild pain/LYLES/temp> 100.4F
Bisacodyl 10 mg 12/07/23 17:20
Bisacodyl 10 Mg Rectal Suppository RECTAL 01/04/24 17:19
[id number] PRN
constipation
Cefepime HCl 2,000 mg 12/07/23 22:00 12/08/23 06:09
Cefepime Hcl 1,000 Mg/11.3 Ml Vial IV 2,000 mg
Q8H NIKA Administration
Diltiazem HCl 240 mg 12/08/23 08:00
Diltiazem 240 Mg Extended Release (24 H) Capsule PO 01/05/24 07:59
DAILY NIKA
Lisinopril 20 mg 12/07/23 20:00 12/07/23 20:41
Lisinopril 20 Mg Tablet PO 01/04/24 19:59 20 mg
BID NIKA Administration
Polyethylene Glycol 17 grams 12/07/23 17:20
Polyethylene Glycol Powder 17 Grams Packet PO 01/04/24 17:19
DAILYPRN PRN
constipation
Senna/Docusate Sodium 1 tablet 12/07/23 17:20
Docusate W/Senna (Megan-Colace) Tablet PO 01/04/24 17:19
BIDPRN PRN
constipation
Sodium Chloride 0 flush 12/07/23 18:00
Sodium Chloride 0.9% (Flush) Syringe IV 01/04/24 17:59
PER PROTOCOL NIKA
Sterile Water 10 ml 12/07/23 22:00 12/08/23 06:09
Sterile Water For Injection 10 Ml Vial IV 01/04/24 21:59 10 ml
Q8H NIKA Administration
Physical Exam
-
General: Well Developed, Well Nourished, No Apparent Distress and Comfortable
HEENT: Negative Jaundice
Cardiology: Normal Sinus Rhythm, S1 and S2
Pulmonary: Clear
GI: Soft and Normal Bowel Sounds
Extremities: No C/C/E and Other (right axillary lymph node with tenderness. )
Labs
Lab Results
WBC 0.7 10^3/uL (4.8-10.8) L* 12/08/23 07:04
RBC 2.23 10^6/uL (4.70-6.10) L 12/08/23 07:04
Hgb 6.6 g/dL (13.0-18.0) L* 12/08/23 07:04
Hct 18.4 % (39.0-52.0) L* 12/08/23 07:04
MCV 82.5 fL (80.0-94.0) 12/08/23 07:04
MCH 29.6 pg (27.0-31.0) 12/08/23 07:04
MCHC 35.9 g/dL (33.0-37.0) 12/08/23 07:04
RDW 12.6 % (11.5-14.5) 12/08/23 07:04
Plt Count 143 10^3/uL (130-400) 12/07/23 12:21
MPV 10.1 fL (7.4-10.4) 12/07/23 12:21
Abs Immat Gran (auto) 0.0 10^3/uL (0-0.05) 12/07/23 12:21
Absolute Neuts (auto) 0.1 10^3/uL (1.4-6.5) L* 12/07/23 12:21
Absolute Lymphs (auto) 0.8 10^3/uL (1.2-3.4) L 12/07/23 12:21
Absolute Monos (auto) 0.1 10^3/uL (0.1-0.6) 12/07/23 12:21
Absolute Eos (auto) 0.0 10^3/uL (0-0.7) 12/07/23 12:21
Absolute Basos (auto) 0.0 10^3/uL (0-0.2) 12/07/23 12:21
Immature Gran % 0.0 % (0-0.5) 12/07/23 12:21
Neutrophils % 7.2 % (42.2-75.2) L 12/07/23 12:21
Lymphocytes % 86.5 % (20.5-51.1) H 12/07/23 12:21
Monocytes % 6.3 % (1.7-9.3) 12/07/23 12:21
Eosinophils % 0.0 % (0-6) 12/07/23 12:21
Basophils % 0.0 % (0-2) 12/07/23 12:21
Creatinine 0.7 mg/dL (0.7-1.3) 12/07/23 12:21
Smear: infrequent lymphs. 1 immature blast like cell.
Vital Signs
Vital Signs
Temp Pulse Resp BP Pulse Ox
97.7 F 80 18 137/82 99
12/08/23 03:22 12/08/23 03:22 12/08/23 03:22 12/08/23 03:22 12/08/23 03:22
[2023-12-08] MEDS: CARDIZEM CD 240 MG PO (07:52)
[2023-12-08] MEDS: ZESTRIL 20 MG PO ×2 (07:52→20:08)
[2023-12-08 09:03] LABS: ALT (SGPT) 31 U/L (0-50); AST (SGOT) 20 U/L (17-59); Albumin 3.5 g/dl (3.5-5.0); Alkaline Phosphatase 92 U/L (38-126); Blood Urea Nitrogen 23 mg/dl (9-20); Calcium 8.7 mg/dl (8.4-10.2); Carbon Dioxide 25 mmol/L (22-30); Chloride 105 mmol/L (98-107); Estimated Creatinine Clearance > 125 ml/min; Glucose 94 mg/dl (70-99); Potassium 4.4 mmol/L (3.5-5.1); Sodium 136 mmol/L (135-145); Total Bilirubin 0.7 mg/dl (0.2-1.3); Total Protein 6.1 g/dl (6.3-8.2); eGFR > 60.00
--- NOTE | 2023-12-08 11:30 | W.PN.HOSP.TC ---
Today's Communication/Plan
-
monitor vitals
See plan
Persistent pancytopenia with severe anemia
Transfuse 2 unit blood today monitor
Follow fever curve
Continue with antibiotics
Awaiting path
Assessment / Plan
Assessment / Plan
General: No Apparent Distress, Comfortable and Conversant
HEENT: NormoCephalic, Anicteric
Respiratory: Clear
Cardiac: S1/S2 and Tachycardia
GI: Soft, Non Tender and Non Distended
Musculoskeletal: No Edema
Neuro: AO x 3, No Motor Deficits and Nonfocal/grossly intact
Psych: calm
Worsening anemia; no active bleeding
s/p 1 unit 12/06; hgb now 6.6 today, 2 units ordered.
-monitor serial H & H
-peripheral smear
-Hematology following, awaiting pathology
# Febrile neutropenia (101.2 fever at home, afebrile (99.9 here), ANC 100 WBC 1.0
-all cell lines dropping from prior- concern is for leukemia vs post-infectious etiology
-bone marrow bx pending results at this time
continue with IV cefepime per ID
Blood culture pellowing; ID and hematology following
Chest x-ray without pneumonia, UA negative
-Tylenol prn and pre-treatment before transfusion
#Peripheral blast recent admission-patient with significant shift in the left side including blasts.
-marrow abnormal/myelofibrosis-pending pathology
-Discuss with ID/Heme , waiting bone marrow bx from 11/25
#Acute self-limiting severe pharyngitis-now resolved, early November. Asymptomatic. Of note from prior hospitalization- Patient does not think he has HIV-did not consent for blood test.
#HTN�benign
Uncontrolled on admission & lisinopril 20 mg BID
#RBBB, hx of
#Cervical DDD with radiculopathy C5-C6 level
#Cervical stenosis
#HLD
-Full Code
-DVT proph - SCDs
Total Critical Care Time__39___ minutes. I was immediately available to the patient and staff. I personally examined, reviewed labs, diagnostic images/reports, interpretations, treatment plans, discussed patient care with other providers and
family or caregivers (if patient is unable to make decisions), entered orders as appropriate and documented the medical record.
Anticipated Discharge: > 48 hours
Subjective/Interval History
-
Date of Service: December 08, 2023
denies pain
Objective Data
-
Labs:
Laboratory Results
12/08/23
07:04
WBC 0.7 L*
Hgb 6.6 L*
Hct 18.4 L*
Plt Count Pending
Sodium 136
Potassium 4.4
Chloride 105
Carbon Dioxide 25
BUN 23 H
Creatinine 0.6 L
Glucose 94
Calcium 8.7
Total Bilirubin 0.7
AST 20
ALT 31
Alkaline Phosphatase 92
Vital Signs:
Vital Signs
Temp Pulse Resp BP Pulse Ox
98.5 F 106 16 139/70 98
12/08/23 10:54 12/08/23 10:54 12/08/23 10:54 12/08/23 10:54 12/08/23 10:54
I&O
12/07/23 12/08/23 12/09/23
06:59 06:59 06:59
Intake Total 1959 0 / 0
Balance 1959 0 / 0
--- NOTE | 2023-12-08 11:50 | CM ---
Initial assessment completed with patient with brother in room. 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
independent, drove and worked, no psychiatric history. [facility] in [place] and PCP is Dr. Jose Maria Longoria. Anticipate Home with no needs.
--- NOTE | 2023-12-08 14:35 | W.PN.ID1 ---
Date of Service
Date of Service: December 08, 2023
Today's Communication
Continue cefepime.
Assessment / Plan
# Neutropenic fever
# Recent severe anemia, peripheral blast s/p BM biopsy (dry tap) 11/25/22, result pending
now with neutropenia, plt count trending down, LAD, sweats concerning for acute leukemia/hematological malignancy
- UA negative.
-blood cx's neg x 24h
- CXR negative
- Continue cefepime 2g IV q8h (d2)
- Trend fevers, CBC.
- Awaiting BM biopsy result.
Chief Complaint
-: Fever and Other (neutropenia)
Subjective / Review of Systems
No new symptoms. feels OK
Vital Signs / Physical Exam
Vital Signs
Vital Signs
Temp Pulse Resp BP Pulse Ox
98.3 F 97 18 140/76 98
12/08/23 13:43 12/08/23 13:43 12/08/23 13:43 12/08/23 13:43 12/08/23 13:43
Selected Entries
12/07/23
23:41
Temp 100.7 F H
Physical Exam
Constitutional: No Acute Distress and Comfortable
Eyes: No Conjunctival Hemorrhage and Sclera Anicteric
Pulmonary: Clear
Gastrointestinal: Soft, Non Tender and Non Distended
Extremities: Negative Edema
Neurological: AO x 3
Objective Data
Lab Data
Lab Results
12/08/23 07:04
PT 13.8 Sec (11.4-14.6) 12/07/23 12:21
INR 1.07 12/07/23 12:21
APTT 31.3 Sec (23.4-35.0) 12/07/23 12:21
Estimated Creat Clear > 125 ml/min 12/08/23 07:04
Total Bilirubin 0.7 mg/dl (0.2-1.3) 12/08/23 07:04
AST 20 U/L (17-59) 12/08/23 07:04
ALT 31 U/L (0-50) 12/08/23 07:04
Alkaline Phosphatase 92 U/L (38-126) 12/08/23 07:04
Most recent labs reviewed.
Micro Results:
12/07/23 13:56 Blood Culture - Preliminary
Blood/Venous No Growth in 24 hours- Final report to follow
12/07/23 13:56 Blood Culture - Preliminary
Blood/Venous No Growth in 24 hours- Final report to follow
--- NOTE | 2023-12-08 18:00 | PTCARENOTE ---
2 units of PRBCs ordered. VSS. Patient resting comfortably in bed, ordering dinner.
[2023-12-08 20:03] LABS: Hematocrit 25.2 % (39.0-52.0)
[2023-12-08 20:05] LABS: Hemoglobin 9.3 g/dL (13.0-18.0)
[2023-12-08] MEDS: TYLENOL 650 MG PO (20:12)
[2023-12-09 03:24] VITALS: BP 150/85
[2023-12-09] MEDS: MAXIPIME 2000 MG IV ×3 (05:53→22:21)
[2023-12-09] MEDS: STERILE WATER FOR INJECTION 10 ML IV ×3 (05:53→22:21)
[2023-12-09 06:19] LABS: Hematocrit 26.1 % (39.0-52.0); Hemoglobin 9.4 g/dL (13.0-18.0); Mean Corpuscular Hgb 29.7 pg (27.0-31.0); Mean Corpuscular Volume 82.3 fL (80.0-94.0); Red Blood Cell Count 3.17 10^6/uL (4.70-6.10); Red Cell Dist. Width 12.5 % (11.5-14.5)
[2023-12-09 06:55] LABS: Mean Platelet Volume 10.5 fL (7.4-10.4); Platelet Count 73 10^3/uL (130-400)
[2023-12-09 06:56] LABS: Anisocytosis Slight; Band Neutrophils 0 % (0-3); Hypochromasia Slight; Lymphocytes 97 % (20-51); Monocytes 3 % (2-9); Normal RBC Morphology No; Platelets Checked Yes; Segmented Neutrophils 0 % (42-75); Total Cells Counted 100
--- NOTE | 2023-12-09 07:00 | PTCARENOTE ---
ANC 0.0. MD made aware.
[2023-12-09 08:29] VITALS: BP 157/98
[2023-12-09] MEDS: CARDIZEM CD 240 MG PO (08:31)
[2023-12-09] MEDS: ZESTRIL 20 MG PO ×2 (08:31→20:57)
--- NOTE | 2023-12-09 11:10 | W.PN.HOSP.TC ---
Today's Communication/Plan
-
Await [facility] transfer
Assessment / Plan
Assessment / Plan
Physical exam:
General: No Apparent Distress, Comfortable and Conversant
HEENT: Normocephalic, Anicteric
Respiratory: Clear
Cardiac: S1/S2 and Tachycardia
GI: Soft, Non Tender and Non Distended
Musculoskeletal: No Edema
Neuro: AO x 3, No Motor Deficits and Nonfocal/grossly intact
Psych: calm
Worsening anemia; no active bleeding
s/p 3 units of RBCs. s/p BM biopsy (dry tap)
-monitor serial H & H
-peripheral smear
-Hematology following, awaiting pathology
# Neutropenic fever
No more fevers
Blood culture is NGTD
Chest x-ray without pneumonia, UA negative
-Tylenol prn and pre-treatment before transfusion
Empiric IV Abx
Appreciate ID help
#Peripheral blast recent admission-patient with significant shift in the left side including blasts.
-marrow abnormal/myelofibrosis-pending pathology
-Discuss with ID/Heme , waiting bone marrow bx from 11/25
Arranging transfer to [facility]
#Acute self-limiting severe pharyngitis-now resolved, early November. Asymptomatic. Of note from prior hospitalization- Patient does not think he has HIV-did not consent for blood test.
#HTN�benign
Uncontrolled on admission & lisinopril 20 mg BID
Add PRN oral hydralazine
#RBBB, hx of
#Cervical DDD with radiculopathy C5-C6 level
#Cervical stenosis
# hyponatremia, Na at 136
#HLD
-Full Code
-DVT proph - SCDs
Total time spent to see the patient, examine the patient, review data and lab results, discuss treatment plan with patient, oncologist, family of patient, nursing staff around 75 minutes
Anticipated Discharge: > 48 hours
Subjective/Interval History
-
Date of Service: December 09, 2023
No chest pain
No sob
Objective Data
-
Labs:
Laboratory Results
12/09/23
05:23
WBC 1.0 L*
Hgb 9.4 L
Hct 26.1 L
Plt Count 73 L D
Vital Signs:
Vital Signs
Temp Pulse Resp BP Pulse Ox
98.0 F 95 18 157/98 98
12/09/23 08:29 12/09/23 08:31 12/09/23 08:29 12/09/23 08:31 12/09/23 08:29
I&O
12/08/23 12/09/23 12/10/23
06:59 06:59 06:59
Intake Total 1959
Balance 1959
[2023-12-09 11:51] LABS: Mean Platelet Volume 10.3 fL (7.4-10.4); Platelet Count 87 10^3/uL (130-400)
[2023-12-09 12:02] VITALS: BP 167/96
--- NOTE | 2023-12-09 14:38 | W.PN.ID1 ---
Date of Service
Date of Service: December 09, 2023
Today's Communication
See below.
ID workup.
Assessment / Plan
# Neutropenic fever
# Now pancytopenia
# Tender Right axillary lymph node
- Pancytopenia preceded by recent history of severe pharyngitis in late October/early November.
Avid mountain biker.
-11/26/23 BM biopsy (dry tap): moderate to severe fibrosis and megakaryocytic dyspoeis
Per Hem/Onc Dr. Martínez, pancytopenia too acute to explain myelofibrosis. Should evaluate for another process.
- UA negative.
-blood cx's neg x 24h
- CXR negative
- Agree CT c/a/p per Hem/Onc
- Consider excisional biopsy of right axilla lymph node for cultures (alert microlab tularemia suspected) and path.
- To start, ordered send out for Tularemia antibodies, EBV PCR, HIV with pt consent, anaplasma Ab, RMSF Ab
- Continue cefepime 2g IV q8h (d3)
-Start empiric doxycycline
- Trend fevers, CBC.
Chief Complaint
-: Fever and Other (neutropenia)
Subjective / Review of Systems
No new complaints.
Vital Signs / Physical Exam
Vital Signs
Vital Signs
Temp Pulse Resp BP Pulse Ox
98.2 F 98 18 167/96 98
12/09/23 12:02 12/09/23 12:02 12/09/23 12:02 12/09/23 12:02 12/09/23 12:02
Selected Entries
12/08/23
19:19
Temp 100.9 F H
Physical Exam
Constitutional: No Acute Distress
Eyes: Sclera Anicteric
Pulmonary: Clear
Gastrointestinal: Soft, Non Tender and Non Distended
Extremities: Negative Edema
Neurological: AO x 3
Objective Data
Lab Data
Lab Results
12/09/23 05:23
12/08/23 07:04
PT 13.8 Sec (11.4-14.6) 12/07/23 12:21
INR 1.07 12/07/23 12:21
APTT 31.3 Sec (23.4-35.0) 12/07/23 12:21
Estimated Creat Clear > 125 ml/min 12/08/23 07:04
Total Bilirubin 0.7 mg/dl (0.2-1.3) 12/08/23 07:04
AST 20 U/L (17-59) 12/08/23 07:04
ALT 31 U/L (0-50) 12/08/23 07:04
Alkaline Phosphatase 92 U/L (38-126) 12/08/23 07:04
Most recent labs reviewed.
Micro Results:
12/07/23 13:56 Blood Culture - Preliminary
Blood/Venous No Growth in 48 hours- Final report to follow
12/07/23 13:56 Blood Culture - Preliminary
Blood/Venous No Growth in 48 hours- Final report to follow
Care Review
Plan reviewed with: Physician (Dr. Martínez)
--- NOTE | 2023-12-09 15:02 | CM ---
Reviewed the chart notes. Awaiting [facility] transfer per notes. CM continues to be available to patient/family and is monitoring medical plan for needs at discharge.
Plan: Transfer [facility] when bed available.
[2023-12-09] MEDS: OMNIPAQUE 50 ML PO (15:19)
[2023-12-09 16:16] VITALS: BP 154/94
--- NOTE | 2023-12-09 17:21 | W.PN.ONC2 ---
Today's Communication / Plan
-
Accepted for inpt transfer to [place] [facility] but no beds.
May need additional studies to rule out superimposed infection in addition to underlying marrow process.
LDH, uric acid now.
Impression
Impression
Neutropenic fever
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
Right axillary pain
Plan
Plan
Lengthy discussions with pt, pt and , and Dr. Fatima at [facility] currently the inpt [facility] attending.
Pt is accepted in transfer as it is unlikely that we will arrive at an actionable diagnosis from the most recent marrow.
Interesting that he felt well during the week he was home, question whether there is an active infectious process in addition to the underyling probable MPD. Also this presentation seems too acute for MPD alone.
CT C/A/P now, eval for infection, eval for splenomegaly.
May need LP as well in evaluation of neutropenic fever, d/w Dr. Valdivia.
Transfuse PRBC to maintain HgB > 7.
Await cultures. Cont Cefepime for now.
Subjective/Objective
Chief Complaint
Heme/Onc follow up of bone marrow disorder NOS complicated by neutropenic fever
Subjective
Reviewed recent events with patient, whom I had seen as an initial consult during his previous hospital admission. 2 review, patient had a viral adenitis lasting maybe 4 days in October then had malaise, saw PMD, got CBC showing anemia and was
hospitalized. Underwent inpatient bone marrow biopsy. Core obtained, unfortunately no aspirate due to dry tap. He went home and felt well for about a week but then had onset of fever on Saturday night. Had malaise on Thursday 09/07 then came to the
[facility]. During admission earlier this month, only the Hgb was low but now pancytopenic with ANC 0, Hgb 6.6 on 12/07 and plt dropping. During the week he was home he felt pretty good, exercised, had no difficulties with ADL's.
Vital Signs:
Vital Signs
Temp Pulse Resp BP Pulse Ox
98.0 F 84 18 154/94 98
12/09/23 16:16 12/09/23 16:16 12/09/23 16:16 12/09/23 16:16 12/09/23 16:16
Lab Results:
Laboratory Data
WBC 1.0 10^3/uL (4.8-10.8) L* 12/09/23 05:23
Hgb 9.4 g/dL (13.0-18.0) L 12/09/23 05:23
Plt Count 73 10^3/uL (130-400) L 12/09/23 05:23
PT 13.8 Sec (11.4-14.6) 12/07/23 12:21
INR 1.07 12/07/23 12:21
APTT 31.3 Sec (23.4-35.0) 12/07/23 12:21
eGFR > 60.00 12/08/23 07:04
Physical Exam
Ill-appearing, awake, alert
Review of Systems
Review of Systems
Constitutional: Reports Fever
[2023-12-09 19:32] VITALS: BP 166/99
[2023-12-09] MEDS: VIBRAMYCIN 100 MG PO (20:57)
[2023-12-09 23:00] VITALS: BP 157/91
[2023-12-10] VITALS (7 sets, daily range): BP systolic 134–174; BP diastolic 83–104
[2023-12-10] MEDS: MAXIPIME 2000 MG IV ×3 (05:45→21:22)
[2023-12-10] MEDS: STERILE WATER FOR INJECTION 10 ML IV ×3 (05:45→21:22)
[2023-12-10 06:35] LABS: Hematocrit 25.1 % (39.0-52.0); Hemoglobin 9.2 g/dL (13.0-18.0); Mean Corp Hgb Conc. 36.7 g/dL (33.0-37.0); Mean Corpuscular Volume 81.8 fL (80.0-94.0); Platelet Count 66 10^3/uL (130-400); Red Blood Cell Count 3.07 10^6/uL (4.70-6.10); Red Cell Dist. Width 12.4 % (11.5-14.5)
[2023-12-10 06:58] LABS: LDH 117 U/L (120-246); Uric Acid 4.9 mg/dl (3.5-8.5)
[2023-12-10 06:59] LABS: White Blood Cell Count 1.1 10^3/uL (4.8-10.8)
[2023-12-10] MEDS: ZESTRIL 20 MG PO ×2 (08:16→21:00)
[2023-12-10] MEDS: VIBRAMYCIN 100 MG PO ×2 (08:16→21:00)
[2023-12-10] MEDS: CARDIZEM CD 240 MG PO (08:16)
--- NOTE | 2023-12-10 09:27 | W.PN.HOSP.TC ---
Today's Communication/Plan
-
Await transfer
Assessment / Plan
Assessment / Plan
Physical exam:
General: No Apparent Distress, Comfortable and Conversant
HEENT: Normocephalic, Anicteric
Respiratory: Clear
Cardiac: S1/S2 and Tachycardia
GI: Soft, Non Tender and Non Distended
Musculoskeletal: No Edema
Neuro: AO x 3, No Motor Deficits and Nonfocal/grossly intact
Psych: calm
# Pancytopenia
WBC 1.1
Hemoglobin 9.2
Platelets 66
no active bleeding
s/p 3 units of RBCs. s/p BM biopsy (dry tap)
-monitor serial H & H
Hematology recommended transfer to [place],patient was accepted but await bed
CT chest, abdomen and pelvis showed lymphadenopathy in bilateral axillary areas. Low-attenuation mass in the segment of the duodenum. 3 pulmonary nodules, anterior mediastinal soft tissue attenuation. No acute inflammatory process in the abdomen
or chest.
Appreciate hematology help
# Neutropenic fever
No more fevers
Blood culture is NGTD
Chest x-ray without pneumonia, UA negative
-Tylenol prn and pre-treatment before transfusion
Empiric IV Abx cefepime and oral doxycycline
Appreciate ID help
# Anxiety. Discussed with patient at length.
Provided encouragement. Will do low-dose Ativan as needed.
#Acute self-limiting severe pharyngitis-now resolved, early November. Asymptomatic. Of note from prior hospitalization- Patient does not think he has HIV-did not consent for blood test.
#HTN�benign
Better controlled .
Continue with lisinopril and diltiazem. Add PRN oral hydralazine
#RBBB, hx of
#Cervical DDD with radiculopathy C5-C6 level
#Cervical stenosis
# hyponatremia, Na at 136
#HLD
-Full Code
-DVT proph - SCDs
Total time spent to see the patient, examine the patient, review data and lab results, discuss treatment plan with patient, oncologist, nursing staff around 55 minutes
Anticipated Discharge: Within 24 hours
Subjective/Interval History
-
Date of Service: December 10, 2023
No chills
No fevers
Objective Data
-
Labs:
Laboratory Results
12/10/23
06:16
WBC 1.1 L*
Hgb 9.2 L
Hct 25.1 L
Plt Count 66 L
Vital Signs:
Vital Signs
Temp Pulse Resp BP Pulse Ox
98.6 F 94 16 160/94 98
12/10/23 08:15 12/10/23 08:16 12/10/23 08:15 12/10/23 08:16 12/10/23 08:15
I&O
12/09/23 12/10/23 12/11/23
06:59 06:59 06:59
Intake Total 2340 / 2340 540 / 540
Balance 2340 / 2340 540 / 540
--- NOTE | 2023-12-10 09:35 | W.PN.ID1 ---
Date of Service
Date of Service: December 10, 2023
Today's Communication
Continue empiric doxycycline and cefepime for now.
Assessment / Plan
# Neutropenic fever; fever improving
# pancytopenia
# Tender Right axillary lymph node
# Bilateral axillary LAD by CT
# Mediastinal masslike lesion by CT ?thymoma
- Pancytopenia preceded by recent history of fever followed by ear pain and severe pharyngitis which resolved in late October/early November. Per pt, no labwork past 2 years until November found to have severe anemia with peripheral blast. Within a week
or two later, also neutropenic, thrombocytopenic.
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
Per Hem/Onc Dr. Martínez, pancytopenia too acute to explain myelofibrosis. Should evaluate for another process.
- UA negative.
-blood cx's neg x 24h
- CXR/CT negative PNA
- CT C/A/P small pulm nodules (3), mediastinal mass-like lesion, and small bilateral axillary LN.
- Tularemia Ab, RMSF Ab, Anaplasma Ab pending ( pt avid mountain biker, although no known insect bites)
- EBV PCR pending (unlikely without hepatosplenomegaly or elevated LFT's)
-HIV screen pending (no risk factor).
- Not consistent with parvovirus
- Consider TB and fungal infection if above work-up negative.
- Consider excisional biopsy of right axilla lymph node for cultures (alert microlab if tularemia suspected) and path.
- To work-up of mediastinal mass.
-Continue empiric doxycycline (d2)
- Consider dc cefepime 2g IV q8h (d4) if afebrile x 48hrs.
- Awaiting transfer to [facility] for work-up.
Chief Complaint
-: Fever and Other (neutropenia)
Subjective / Review of Systems
stable.
Review of Systems: No Headache, No Pharyngitis, Swollen Lymph Nodes (right axilka), No Cough, No Chest Pain, No Nausea, No Diarrhea and No Skin Rash
Vital Signs / Physical Exam
Vital Signs
Vital Signs
Temp Pulse Resp BP Pulse Ox
98.6 F 94 16 160/94 98
12/10/23 08:15 12/10/23 08:16 12/10/23 08:15 12/10/23 08:16 12/10/23 08:15
Physical Exam
Constitutional: No Acute Distress, Comfortable and Non-toxic
Head: Other (no frontal or maxillary sinus tenderness)
Eyes: No Conjunctival Hemorrhage and Sclera Anicteric
Oropharyngeal: Benign
Lymph Nodes: Lymphadenopathy (tender right axilla)
Cardiovascular: Regular Rate and S1/S2
Pulmonary: Clear
Gastrointestinal: Soft, Non Tender and Non Distended
Genito-Urinary: Negative CVA Tenderness
Extremities: Negative [place] Lesions
Musculoskeletal: Negative Spinal Tenderness
Neurological: AO x 3
Objective Data
Lab Data
Lab Results
12/10/23 06:16
12/08/23 07:04
PT 13.8 Sec (11.4-14.6) 12/07/23 12:21
INR 1.07 12/07/23 12:21
APTT 31.3 Sec (23.4-35.0) 12/07/23 12:21
Estimated Creat Clear > 125 ml/min 12/08/23 07:04
Total Bilirubin 0.7 mg/dl (0.2-1.3) 12/08/23 07:04
AST 20 U/L (17-59) 12/08/23 07:04
ALT 31 U/L (0-50) 12/08/23 07:04
Alkaline Phosphatase 92 U/L (38-126) 04/28/24 07:04
Most recent labs reviewed.
Micro Results:
12/07/23 13:56 Blood Culture - Preliminary
Blood/Venous No Growth in 48 hours- Final report to follow
12/07/23 13:56 Blood Culture - Preliminary
Blood/Venous No Growth in 48 hours- Final report to follow
12/09/23 CT c/a/p 3 pulmonary nodules measuring up to 5 mm. No evidence of pneumonia.
Anterior mediastinal soft tissue attenuation, somewhat masslike measuring up to 2.3 cm. Cannot exclude thymic mass, such as thymoma. Initial step for further evaluation may include PET/CT. Small bilateral axillary lymph nodes measuring up to 9.5 mm
on the right, with associated soft tissue stranding of subcutaneous fat and overlying skin thickening. Possibly inflammatory or infectious in etiology. Clinical correlation recommended.
No adenopathy in the abdomen or pelvis.
--- NOTE | 2023-12-10 10:46 | W.PN.ONC ---
Today's Communication / Plan
-
BM core biopsy results are so far non-diagnostic. Await Jak2, CALR, MPL mutation testing, pending, as well as NGS of peripheral blood (dry tap).
Continue supportive care, transfuse prbc if hgb < 7. Would favor CMV negative blood in case transplant become a consideration.
Await transfer to [place]
CT scans did not provide any further information, spleen appears normal, no significant lymphadenopathy.
Fullness in anterior mediastinum noted - thymoma can cause aplastic anemia, though only rare case reports of thymoma in association with MDS/MF. Further/future work-uo to be considered
Continue abx and infectious w/u per ID
Impression
Impression
Neutropenic fever
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
pancytopenia
CT CAP 12/08 w/ tiny pulm nodules, normal spleen, mediastinal soft tissue attenuation up to 2.3cm, small bilateral axillary nodes up to 9.5mm, 11mm rounded low-attenuation mass in the 3rd segment of duodenum
Plan
Plan
BM core biopsy results are so far non-diagnostic. Await Jak2, CALR, MPL mutation testing, pending, as well as NGS of peripheral blood (dry tap).
Continue supportive care, transfuse prbc if hgb < 7. Would favor CMV negative blood in case transplant become a consideration.
Await transfer to [place]
CT scans did not provide any further information, spleen appears normal, no significant lymphadenopathy.
Fullness in anterior mediastinum noted - thymoma can cause aplastic anemia, though only rare case reports of thymoma in association with MDS/MF. Further/future work-uo to be considered
Continue abx and infectious w/u per ID
Subjective/Objective
Subjective/Objective
no new issues, feels well overall, just frustrated.
Vital Signs:
Vital Signs
Temp Pulse Resp BP Pulse Ox
98.0 F 98 20 156/104 98
12/10/23 10:34 12/10/23 10:34 12/10/23 10:34 12/10/23 10:34 12/10/23 10:34
Lab Results:
Laboratory Data
WBC 1.1 10^3/uL (4.8-10.8) L* 12/10/23 06:16
Hgb 9.2 g/dL (13.0-18.0) L 12/10/23 06:16
Plt Count 66 10^3/uL (130-400) L 12/10/23 06:16
PT 13.8 Sec (11.4-14.6) 12/07/23 12:21
INR 1.07 12/07/23 12:21
APTT 31.3 Sec (23.4-35.0) 12/07/23 12:21
eGFR > 60.00 12/08/23 07:04
[2023-12-10 11:45] LABS: HIV Combo Negative (Negative)
[2023-12-10 13:01] LABS: Number Of Markers 26 markers; Source Blood
--- NOTE | 2023-12-10 13:22 | CM ---
Reviewed the chart notes. Await transfer to [facility] once bed becomes available. CM continues to be available to patient/family and is monitoring medical plan for needs at discharge.
Plan: Transfer to [facility] once bed available.
[2023-12-10 13:41] LABS: Anisocytosis Slight; Band Neutrophils 0 % (0-3); Hypochromasia Slight; Lymphocytes 96 % (20-51); Monocytes 4 % (2-9); Normal RBC Morphology No; Platelets Checked Yes; Segmented Neutrophils 0 % (42-75)
[2023-12-10 13:42] LABS: Total Cells Counted 100
[2023-12-10] MEDS: ATIVAN 0.5 MG PO (16:02)
[2023-12-10] MEDS: APRESOLINE 5 MG PO (16:02)
[2023-12-11] MEDS: MAXIPIME 2000 MG IV ×2 (05:57→13:01)
[2023-12-11] MEDS: STERILE WATER FOR INJECTION 10 ML IV ×2 (05:58→13:02)
--- NOTE | 2023-12-11 07:34 | W.PN.ONC2 ---
Addendum entered and electronically signed by Simon Hussein MD 12/11/23 07:57:
Transfuse CMV - PRBC HgB < 7 if inpatient (or < 8 if going to be discharged).
Contact time 60 minutes
Original Note:
Today's Communication / Plan
-
Medically Stable.
Awaiting formal diagnosis (pathology to review today with [facility] thought leader conference). Also awaiting [employer].
3 options:
1. Await inpt-inpt tnfx (might take multiple days based on his clinical stability - depends on [facility] census).
2. Discharge on PO ABX with close outpt [facility] Consult - Navigator working on this now.
3. Number 2 with use of [facility] ER if he develops recurrent fever or new symptoms before outpt [facility] eval. He can be admitted to [facility] from their ER if he needs inpatient care.
See if ID can change his ABX to an all PO regimen so that he can maybe go home an await outpt [facility] team EVAL or use the [facility] ER if he needs urgent reevaluation post DH discharge
Impression
Impression
Neutropenic fever
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
pancytopenia
Plan
Plan
BM core biopsy results are so far non-diagnostic. Await Jak2, CALR, MPL mutation testing, pending, as well as NGS of peripheral blood (dry tap).
Continue supportive care, transfuse prbc if hgb < 7. Would favor CMV negative blood in case transplant become a consideration.
Await transfer to [facility] (looking at inpatient vs outpatient options) as inpt-inpt transfer might take > 1 week and patient is relatively stable.
CT scans did not provide any further information, spleen appears normal, no significant lymphadenopathy.
Fullness in anterior mediastinum noted - thymoma can cause aplastic anemia, though only rare case reports of thymoma in association with MDS/MF. Further/future work-up to be considered
Continue abx and infectious w/u per ID. Cultures are negative. Can we switch IV cefepime to an oral option as cultures negative and ANC will likely remain low indefinitely?
I am working with [facility] to get him set up for eval [facility].
Multiple questions asked and answered.
Subjective/Objective
Chief Complaint
ACS Heme Onc
Subjective
Feels well and sitting in chair. No fever or bleeding. Right axillary discomfort has mostly resolved. Wants to know plan.
Vital Signs:
Vital Signs
Temp Pulse Resp BP Pulse Ox
98.3 F 81 18 160/88 97
12/10/23 22:46 12/10/23 22:46 12/10/23 22:46 12/10/23 22:46 12/10/23 22:46
Lab Results:
Laboratory Data
WBC 1.1 10^3/uL (4.8-10.8) L* 12/10/23 06:16
Hgb 9.2 g/dL (13.0-18.0) L 12/10/23 06:16
Plt Count 66 10^3/uL (130-400) L 12/10/23 06:16
PT 13.8 Sec (11.4-14.6) 12/07/23 12:21
INR 1.07 12/07/23 12:21
APTT 31.3 Sec (23.4-35.0) 12/07/23 12:21
eGFR > 60.00 12/08/23 07:04
Physical Exam
Unchanged. Well appearing.
[2023-12-11 08:00] VITALS: BP 166/98
[2023-12-11 08:15] LABS: % Basophils 0.7 % (0-2); % Lymphocytes 91.2 % (20.5-51.1); % Monocytes 8.1 % (1.7-9.3); Absolute Lymphocytes 1.2 10^3/uL (1.2-3.4); Absolute Monocytes 0.1 10^3/uL (0.1-0.6); Mean Corp Hgb Conc. 35.7 g/dL (33.0-37.0); Mean Corpuscular Hgb 29.9 pg (27.0-31.0); Mean Corpuscular Volume 83.6 fL (80.0-94.0); Mean Platelet Volume 10.6 fL (7.4-10.4); Nucleated Red Blood Cells % 1.5 % (-); Platelet Count 62 10^3/uL (130-400); Red Blood Cell Count 3.35 10^6/uL (4.70-6.10); Red Cell Dist. Width 12.1 % (11.5-14.5)
--- NOTE | 2023-12-11 08:21 | W.PN.HOSP.TC ---
Today's Communication/Plan
-
Await transfer
Assessment / Plan
Assessment / Plan
Physical exam:
General: No Apparent Distress, Comfortable and Conversant
HEENT: Normocephalic, Anicteric
Respiratory: Clear
Cardiac: S1/S2 and Tachycardia
GI: Soft, Non Tender and Non Distended
Musculoskeletal: No Edema
Neuro: AO x 3, No Motor Deficits and Nonfocal/grossly intact
Psych: calm
# Pancytopenia
WBC 1.4
Hemoglobin 10.0
Platelets 62
no active bleeding
s/p 3 units of RBCs. s/p BM biopsy (dry tap)
Hematology recommended transfer to [place],patient was accepted but await bed
CT chest, abdomen and pelvis showed lymphadenopathy in bilateral axillary areas. Low-attenuation mass in the segment of the duodenum. 3 pulmonary nodules, anterior mediastinal soft tissue attenuation. No acute inflammatory process in the abdomen
or chest.
Appreciate hematology help
# Neutropenic fever
No more fevers
Blood culture is NGTD
Chest x-ray without pneumonia, UA negative
-Tylenol prn and pre-treatment before transfusion
Stopped IV cefepime
c/w oral doxycycline
Appreciate ID help
# Anxiety. Discussed with patient at length.
Provided encouragement. Will do low-dose Ativan as needed.
#Acute self-limiting severe pharyngitis-now resolved, early November. Asymptomatic. Of note from prior hospitalization- Patient does not think he has HIV-did not consent for blood test.
#HTN�benign
Better controlled .
Continue with lisinopril and diltiazem. Add PRN oral hydralazine
#RBBB, hx of
#Cervical DDD with radiculopathy C5-C6 level
#Cervical stenosis
# hyponatremia, Na at 136
#HLD
-Full Code
-DVT proph - SCDs
Prolonged pt's encounter.
Total time spent to see the patient, examine the patient, review data and lab results, discuss treatment plan with patient, oncologist,family, nursing staff around 59 minutes
Anticipated Discharge: Within 24 hours
Subjective/Interval History
-
Date of Service: December 11, 2023
No fevers
feels fine
Objective Data
-
Labs:
Laboratory Results
12/11/23
07:56
WBC Pending
Hgb Pending
Hct Pending
Plt Count Pending
Vital Signs:
Vital Signs
Temp Pulse Resp BP Pulse Ox
98.3 F 81 18 160/88 97
12/10/23 22:46 12/10/23 22:46 12/10/23 22:46 12/10/23 22:46 12/10/23 22:46
I&O
12/10/23 12/11/23 12/12/23
06:59 06:59 06:59
Intake Total 540 / 540 6320 / 6320
Balance 540 / 540 6320 / 6320
[2023-12-11 08:27] LABS: White Blood Cell Count 1.4 10^3/uL (4.8-10.8)
[2023-12-11] MEDS: ZESTRIL 20 MG PO ×2 (08:43→20:48)
[2023-12-11] MEDS: VIBRAMYCIN 100 MG PO ×2 (08:43→20:48)
[2023-12-11] MEDS: CARDIZEM CD 240 MG PO (08:43)
[2023-12-11] MEDS: ATIVAN 0.5 MG PO ×2 (08:46→20:53)
[2023-12-11 10:35] VITALS: BP 156/96
--- NOTE | 2023-12-11 14:45 | W.PN.ID1 ---
Date of Service
Date of Service: December 11, 2023
Today's Communication
- Continue empiric doxycycline (d3)
- stop cefepime
no objection to discharge with close follow up
Assessment / Plan
# Neutropenic fever; fever improving
# pancytopenia
# Tender Right axillary lymph node
# Bilateral axillary LAD by CT
# Mediastinal masslike lesion by CT ?thymoma
- fever improving, wbc seems to be improving, axillary LNs less tender
- Pancytopenia preceded by recent history of fever followed by ear pain and severe pharyngitis which resolved in late October/early November. Per pt, no labwork past 2 years until November found to have severe anemia with peripheral blast. Within a week
or two later, also neutropenic, thrombocytopenic.
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
Per Hem/Onc Dr. Martínez, pancytopenia too acute to explain myelofibrosis. Should evaluate for another process.
- leukopenia seems to be improving, ANC unchanged
- UA negative.
- blood cx's NGTD
- CXR/CT negative PNA
- CT C/A/P small pulm nodules (3), mediastinal mass-like lesion, small bilateral axillary LN, small duodneal mass as well.
- reticulocyte count in the AM
- Tularemia Ab, RMSF Ab, Anaplasma Ab pending ( pt [facility], although no known insect bites)
- EBV PCR pending (unlikely without hepatosplenomegaly or elevated LFT's)
- HIV screen negative
- Consider TB and fungal infection if above work-up negative.
- Consider excisional biopsy of right axilla lymph node for cultures (alert microlab if tularemia suspected) and path.
- To work-up of mediastinal mass.
- Continue empiric doxycycline (d3)
- stop cefepime
- Awaiting transfer to [facility] for further work-up.
Chief Complaint
-: Fever and Other (neutropenia)
Subjective / Review of Systems
fever resolved 12/07
BP stable
wbc slight increase to 1.4, ANC remains 0
cr 0.6
HIV neg
rickettsia pending, anaplasma pending
Vital Signs / Physical Exam
Vital Signs
Vital Signs
Temp Pulse Resp BP Pulse Ox
98.3 F 91 16 156/96 98
12/11/23 08:00 12/11/23 08:43 12/11/23 08:00 12/11/23 10:35 12/11/23 08:00
Physical Exam
Constitutional: No Acute Distress
Lymph Nodes: Other (matted LNs in the R axilla -tender)
Cardiovascular: Regular Rate and S1/S2; Negative Murmur or Rub
Pulmonary: Clear and Symmetric; Negative Wheezes or Rales
Gastrointestinal: Soft, Non Tender, Non Distended and Normal Bowel Sounds
Skin: Warm and Dry; Negative Rash or Jaundice
Neurological: Awake
Objective Data
Lab Data
Lab Results
12/11/23 07:56
12/08/23 07:04
PT 13.8 Sec (11.4-14.6) 12/07/23 12:21
INR 1.07 12/07/23 12:21
APTT 31.3 Sec (23.4-35.0) 12/07/23 12:21
Estimated Creat Clear > 125 ml/min 12/08/23 07:04
Total Bilirubin 0.7 mg/dl (0.2-1.3) 12/08/23 07:04
AST 20 U/L (17-59) 12/08/23 07:04
ALT 31 U/L (0-50) 12/08/23 07:04
Alkaline Phosphatase 92 U/L (38-126) 12/08/23 07:04
Most recent labs reviewed.
Micro Results:
12/07/23 13:56 Blood Culture - Preliminary
Blood/Venous No Growth in 4 days- Final report to follow
12/07/23 13:56 Blood Culture - Preliminary
Blood/Venous No Growth in 4 days- Final report to follow
12/09/23 CT c/a/p 3 pulmonary nodules measuring up to 5 mm. No evidence of pneumonia.
Anterior mediastinal soft tissue attenuation, somewhat masslike measuring up to 2.3 cm. Cannot exclude thymic mass, such as thymoma. Initial step for further evaluation may include PET/CT. Small bilateral axillary lymph nodes measuring up to 9.5 mm
on the right, with associated soft tissue stranding of subcutaneous fat and overlying skin thickening. Possibly inflammatory or infectious in etiology. Clinical correlation recommended.
No adenopathy in the abdomen or pelvis.
Care Review
Plan reviewed with: Physician (Dr Dina dias)
[2023-12-11 16:00] VITALS: BP 175/105
[2023-12-11] MEDS: APRESOLINE 5 MG PO (16:42)
--- NOTE | 2023-12-11 16:43 | W.PN.UPDATE ---
Update Note
Progress Note Update
Addendum
Called [facility] transfer center twice, no bed available
Called transfer center to make an OP appointment sooner. The nearest appointment was given to me with Dr Singletary on 03/27/24 at [address]
They asked me to fax his clinical to [phone] to review and the navigator might feel the urgency to schedule him sooner based on his labs and not the history I gave.
[2023-12-11 23:21] VITALS: BP 163/95
[2023-12-12 05:19] LABS: Hematocrit 23.2 % (39.0-52.0); Hemoglobin 8.5 g/dL (13.0-18.0); Mean Corp Hgb Conc. 36.6 g/dL (33.0-37.0); Mean Platelet Volume 10.5 fL (7.4-10.4); Nucleated Red Blood Cells % 0 % (-); Platelet Count 60 10^3/uL (130-400); Red Blood Cell Count 2.83 10^6/uL (4.70-6.10); Reticulocyte Count 0.2 % (0.4-2.8)
[2023-12-12 05:20] LABS: White Blood Cell Count 1.2 10^3/uL (4.8-10.8)
[2023-12-12 07:49] VITALS: BP 167/99
--- NOTE | 2023-12-12 09:13 | W.PN.HOSP.TC ---
Today's Communication/Plan
-
He feels safer to stay in hospital for pending inpt transfer
Assessment / Plan
Assessment / Plan
Physical exam:
General: No Apparent Distress, Comfortable and Conversant
HEENT: Normocephalic, Anicteric
Respiratory: Clear
Cardiac: S1/S2 and Tachycardia
GI: Soft, Non Tender and Non Distended
Musculoskeletal: No Edema
Neuro: AO x 3, No Motor Deficits and Nonfocal/grossly intact
Psych: calm
# Pancytopenia
WBC 1.2
Hemoglobin 8.5
Platelets 60
no active bleeding
s/p 3 units of RBCs. s/p BM biopsy (dry tap)
Hematology recommended transfer to [place],patient was accepted but await bed
CT chest, abdomen and pelvis showed lymphadenopathy in bilateral axillary areas. Low-attenuation mass in the segment of the duodenum. 3 pulmonary nodules, anterior mediastinal soft tissue attenuation. No acute inflammatory process in the abdomen
or chest.
Appreciate hematology help
# Neutropenic fever
No more fevers
Blood culture is NGTD
Chest x-ray without pneumonia, UA negative
-Tylenol prn and pre-treatment before transfusion
Stopped IV cefepime
c/w oral doxycycline
Appreciate ID help
# Anxiety. Discussed with patient at length.
Provided encouragement. Will do low-dose Ativan as needed.
#Acute self-limiting severe pharyngitis-now resolved, early November. Asymptomatic. Of note from prior hospitalization- Patient does not think he has HIV-did not consent for blood test.
#HTN�benign
Better controlled .
Continue with lisinopril and diltiazem. Add PRN oral hydralazine
#RBBB, hx of
#Cervical DDD with radiculopathy C5-C6 level
#Cervical stenosis
# hyponatremia, Na at 136
#HLD
-Full Code
-DVT proph - SCDs
Prolonged pt's encounter.
Total time spent to see the patient, examine the patient, review data and lab results, discuss treatment plan with patient, oncologist,family, nursing staff around 59 minutes
Anticipated Discharge: Today
Subjective/Interval History
-
Date of Service: December 12, 2023
No fevers
Objective Data
-
Labs:
Laboratory Results
12/12/23
04:54
WBC 1.2 L*
Hgb 8.5 L
Hct 23.2 L
Plt Count 60 L
Vital Signs:
Vital Signs
Temp Pulse Resp BP Pulse Ox
98.5 F 94 18 167/99 97
12/12/23 07:49 12/12/23 07:49 12/12/23 07:49 12/12/23 07:49 12/12/23 07:49
I&O
12/11/23 12/12/23 12/13/23
06:59 06:59 06:59
Intake Total 6320 / 6320 2880 / 2880
Balance 6320 / 6320 2880 / 2880
[2023-12-12] MEDS: CARDIZEM CD 240 MG PO (09:40)
[2023-12-12] MEDS: VIBRAMYCIN 100 MG PO ×2 (09:40→20:36)
[2023-12-12] MEDS: ZESTRIL 20 MG PO ×2 (09:41→20:36)
[2023-12-12] MEDS: APRESOLINE 5 MG PO ×3 (09:42→20:43)
[2023-12-12 10:18] LABS: Band Neutrophils 0 % (0-3); Monocytes 5 % (2-9); Normal RBC Morphology Yes; Platelets Checked Yes
[2023-12-12 10:19] LABS: Total Cells Counted 100
[2023-12-12 10:20] LABS: Blasts 7 % (-)
[2023-12-12 10:24] LABS: Segmented Neutrophils 0 % (42-75)
[2023-12-12 10:25] LABS: Atypical Lymphocytes 8 %; Lymphocytes 80 % (20-51)
--- NOTE | 2023-12-12 13:01 | CM ---
Reviewed the chart notes. Per notes, waiting on bed at [facility]. CM continues to be available to patient/family and is monitoring medical plan for needs at discharge.
Plan: Transfer to [place] once bed available.
[2023-12-12 15:40] VITALS: BP 173/101
--- NOTE | 2023-12-12 19:51 | W.PN.ID1 ---
Date of Service
Date of Service: December 12, 2023
Today's Communication
hold the course with doxycycline and observe clinically
Assessment / Plan
# Neutropenic fever; fever improving
# pancytopenia
# Tender Right axillary lymph node
# Bilateral axillary LAD by CT
# Mediastinal masslike lesion by CT ?thymoma
- fever improving, wbc seems to be improving overall from gabriella, axillary LNs more tender today
- would hold the course and observe clinically
- Pancytopenia preceded by recent history of fever followed by ear pain and severe pharyngitis which resolved in late October/early November. Per pt, no labwork past 2 years until November found to have severe anemia with peripheral blast. Within a week
or two later, also neutropenic, thrombocytopenic.
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
Per Hem/Onc Dr. Martínez, pancytopenia too acute to explain myelofibrosis. Should evaluate for another process.
- leukopenia seems to be improving, ANC unchanged
- UA negative.
- blood cx's NGTD
- CXR/CT negative PNA
- CT C/A/P small pulm nodules (3), mediastinal mass-like lesion, small bilateral axillary LN, small duodneal mass as well.
- reticulocyte count inappropriately low
- Tularemia Ab, RMSF Ab, Anaplasma Ab pending ( pt [facility], although no known insect bites)
- EBV PCR pending (unlikely without hepatosplenomegaly or elevated LFT's)
- HIV screen negative
- Consider TB and fungal infection if above work-up negative.
- Consider excisional biopsy of right axilla lymph node for cultures (alert microlab if tularemia suspected) and path.
- To work-up of mediastinal mass.
- Continue empiric doxycycline (d4)
- stop cefepime
- Awaiting transfer to [facility] for further work-up.
Chief Complaint
-: Fever and Other (neutropenia)
Subjective / Review of Systems
remains afebrile
bp stable
slight decrease in WBC count - could be within the range of error of the test
hgb declined to 8.5 - management per hematology
plt stable
retic count low
awaiting send out labs
some increased pain in the axillary lymphadenopathy today
long conversation with patient and sister
Vital Signs / Physical Exam
Vital Signs
Vital Signs
Temp Pulse Resp BP Pulse Ox
98.6 F 80 18 173/101 100
12/12/23 15:40 12/12/23 18:15 12/12/23 15:40 12/12/23 18:15 12/12/23 15:40
Physical Exam
Constitutional: No Acute Distress
Lymph Nodes: Other (refuses exam of R axillary LNs, reports they're notably more tender with even light touch)
Cardiovascular: Regular Rate and S1/S2; Negative Murmur or Rub
Pulmonary: Clear and Symmetric; Negative Wheezes or Rales
Gastrointestinal: Soft, Non Tender, Non Distended and Normal Bowel Sounds
Skin: Warm and Dry; Negative Rash or Jaundice
Objective Data
Lab Data
Lab Results
12/12/23 04:54
12/08/23 07:04
PT 13.8 Sec (11.4-14.6) 12/07/23 12:21
INR 1.07 12/07/23 12:21
APTT 31.3 Sec (23.4-35.0) 12/07/23 12:21
Estimated Creat Clear > 125 ml/min 12/08/23 07:04
Total Bilirubin 0.7 mg/dl (0.2-1.3) 12/08/23 07:04
AST 20 U/L (17-59) 12/08/23 07:04
ALT 31 U/L (0-50) 12/08/23 07:04
Alkaline Phosphatase 92 U/L (38-126) 12/08/23 07:04
Most recent labs reviewed.
Micro Results:
12/07/23 13:56 Blood Culture - Final
Blood/Venous No Growth - Final Report
12/07/23 13:56 Blood Culture - Final
Blood/Venous No Growth - Final Report
12/09/23 CT c/a/p 3 pulmonary nodules measuring up to 5 mm. No evidence of pneumonia.
Anterior mediastinal soft tissue attenuation, somewhat masslike measuring up to 2.3 cm. Cannot exclude thymic mass, such as thymoma. Initial step for further evaluation may include PET/CT. Small bilateral axillary lymph nodes measuring up to 9.5 mm
on the right, with associated soft tissue stranding of subcutaneous fat and overlying skin thickening. Possibly inflammatory or infectious in etiology. Clinical correlation recommended.
No adenopathy in the abdomen or pelvis.
[2023-12-12 20:30] VITALS: BP 187/101
[2023-12-12] MEDS: ATIVAN 0.5 MG PO (20:43)
[2023-12-12 23:40] VITALS: BP 168/102
[2023-12-13] MEDS: TYLENOL 650 MG PO ×2 (00:14→23:08)
[2023-12-13 03:22] VITALS: BP 151/91
[2023-12-13 07:24] LABS: % Lymphocytes 90.5 % (20.5-51.1); % Monocytes 7.4 % (1.7-9.3); % Neutrophils 2.1 % (42.2-75.2); Absolute Lymphocytes 0.9 10^3/uL (1.2-3.4); Absolute Monocytes 0.1 10^3/uL (0.1-0.6); Hematocrit 24.8 % (39.0-52.0); Hemoglobin 8.9 g/dL (13.0-18.0); Mean Corp Hgb Conc. 35.9 g/dL (33.0-37.0); Mean Corpuscular Volume 83.5 fL (80.0-94.0); Mean Platelet Volume 10.4 fL (7.4-10.4); Nucleated Red Blood Cells % 0 % (-); Platelet Count 55 10^3/uL (130-400); Red Blood Cell Count 2.97 10^6/uL (4.70-6.10); Red Cell Dist. Width 11.8 % (11.5-14.5)
[2023-12-13 07:56] VITALS: BP 176/113
[2023-12-13] MEDS: ZESTRIL 20 MG PO ×2 (08:18→21:04)
[2023-12-13] MEDS: VIBRAMYCIN 100 MG PO ×2 (08:19→21:04)
[2023-12-13] MEDS: APRESOLINE 5 MG PO (08:19)
[2023-12-13] MEDS: CARDIZEM CD 240 MG PO (08:19)
[2023-12-13 09:05] LABS: Anaplasma phagocytophilum IgG <1:80 (<1:80); Anaplasma phagocytophilum IgM < 1:16 (< 1:16)
--- NOTE | 2023-12-13 09:50 | W.PN.HOSP.TC ---
Today's Communication/Plan
-
Await transfer to [place]
Assessment / Plan
Assessment / Plan
Physical exam:
General: No Apparent Distress, Comfortable and Conversant
HEENT: Normocephalic, Anicteric
Respiratory: Clear
Cardiac: S1/S2 and Tachycardia
GI: Soft, Non Tender and Non Distended
Musculoskeletal: No Edema
Neuro: AO x 3, No Motor Deficits and Nonfocal/grossly intact
Psych: calm
# Pancytopenia
WBC 1.2
Hemoglobin 8.5
Platelets 60
no active bleeding
s/p 3 units of RBCs. s/p BM biopsy (dry tap)
Hematology recommended transfer to [place],patient was accepted but await bed
CT chest, abdomen and pelvis showed lymphadenopathy in bilateral axillary areas. Low-attenuation mass in the segment of the duodenum. 3 pulmonary nodules, anterior mediastinal soft tissue attenuation. No acute inflammatory process in the abdomen
or chest.
Appreciate hematology help
# Neutropenic fever
Had recurrent fever last night
Blood culture is NGTD
Chest x-ray without pneumonia, UA negative
-Tylenol prn and pre-treatment before transfusion
Stopped IV cefepime
c/w oral doxycycline
Appreciate ID help
# Anxiety. Discussed with patient at length.
Provided encouragement. Will do low-dose Ativan as needed.
#Acute self-limiting severe pharyngitis-now resolved, early November. Asymptomatic. Of note from prior hospitalization- Patient does not think he has HIV-did not consent for blood test.
#HTN�benign
Better controlled .
Continue with lisinopril and diltiazem. Add PRN oral hydralazine
#RBBB, hx of
#Cervical DDD with radiculopathy C5-C6 level
#Cervical stenosis
# hyponatremia, Na at 136
#HLD
-Full Code
-DVT proph - SCDs
Prolonged pt's encounter. Family also requested updates
Many calls to [facility] every day. No bed available yet
Total time spent to see the patient, examine the patient, review data and lab results, discuss treatment plan with patient, oncologist,family, nursing staff around 59 minutes
Anticipated Discharge: > 48 hours
Subjective/Interval History
-
Date of Service: December 13, 2023
Mild fever over night
No pain issues
Objective Data
-
Labs:
Laboratory Results
12/13/23
06:59
WBC 1.0 L*
Hgb 8.9 L
Hct 24.8 L
Plt Count 55 L
Vital Signs:
Vital Signs
Temp Pulse Resp BP Pulse Ox
99.3 F 102 19 176/113 98
12/13/23 07:56 12/13/23 07:56 12/13/23 07:56 12/13/23 07:56 12/13/23 07:56
I&O
12/12/23 12/13/23 12/14/23
06:59 06:59 06:59
Intake Total 2880 / 2880 1280 / 1280
Balance 2880 / 2880 1280 / 1280
[2023-12-13 09:54] VITALS: BMI 23.1
--- NOTE | 2023-12-13 10:48 | W.PN.ONC ---
Today's Communication / Plan
-
5/3 WBC 1.0, Hgb 8.9, Hct 24.8, PLT 55, ANC 0
Continue strict neutropenic precautions
Transfuse as needed to maintain Hgb >7
CMV negative blood recommended in the event transplant is a consideration.
Continue supportive care and emotional support
ID following
We will follow. Await transfer to [place]
Impression
Impression
Neutropenic fever
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
Pancytopenia
Right axillary lymph node tenderness
Anxiety
Subjective/Objective
Subjective/Objective
patient out of bed to the chair. states he had fever overnight. he is anxious regarding the timing of transfer to [place]. he denies pain or other complaints.
Vital Signs:
Vital Signs
Temp Pulse Resp BP Pulse Ox
99.3 F 102 19 176/113 98
12/13/23 07:56 12/13/23 07:56 12/13/23 07:56 12/13/23 07:56 12/13/23 07:56
physical exam unchanged.
Lab Results:
Laboratory Data
WBC 1.0 10^3/uL (4.8-10.8) L* 12/13/23 06:59
Hgb 8.9 g/dL (13.0-18.0) L 12/13/23 06:59
Plt Count 55 10^3/uL (130-400) L 12/13/23 06:59
PT 13.8 Sec (11.4-14.6) 12/07/23 12:21
INR 1.07 12/07/23 12:21
APTT 31.3 Sec (23.4-35.0) 12/07/23 12:21
eGFR > 60.00 12/08/23 07:04
12/09/23: CT c/a/p: Three pulmonary nodules measuring up to 5 mm. Follow-up may be considered in one year depending on the clinical scenario. Pulmonary nodule advisory Board notified by radiology department front office staff.No evidence of
pneumonia.Anterior mediastinal soft tissue attenuation, somewhat masslike measuring up to 2.3 cm. Cannot exclude thymic mass, such as thymoma. Initial step for further evaluation may include PET/CT.Small bilateral axillary lymph nodes measuring up
to 9.5 mm on the right, with associated soft tissue stranding of subcutaneous fat and overlying skin thickening. Possibly inflammatory or infectious in etiology. Clinical correlation recommended.No adenopathy in the abdomen or pelvis.No evidence of
diverticulosis or acute diverticulitis. Mild colonic fecal burden. 11 mm rounded low-attenuation mass in the third segment of the duodenum. No proximal obstruction.No acute inflammatory process identified within the abdomen or pelvis.
--- NOTE | 2023-12-13 10:49 | CM ---
Reviewed the chart notes. Per notes, waiting on bed at [facility]. CM continues to be available to patient/family and is monitoring medical plan for needs at discharge.
Plan: Transfer to [facility] once bed available.
[2023-12-13 15:32] VITALS: BP 179/103
--- NOTE | 2023-12-13 17:28 | W.PN.ID1 ---
Date of Service
Date of Service: December 13, 2023
Today's Communication
- fever may be relapsing; repeat blood cultures, start levofloxacin
- repeat EKG to reassess QTc in the AM
- follow clinically
- Continue empiric doxycycline (d5)
- qft gold
awaiting transfer
Assessment / Plan
# Neutropenic fever; fever improving
# pancytopenia
# Tender Right axillary lymph node
# Bilateral axillary LAD by CT
# Mediastinal masslike lesion by CT ?thymoma
- fever may be relapsing; repeat blood cultures, start levofloxacin
- repeat EKG to reassess QTc in the AM
- follow clinically
- Continue empiric doxycycline (d5)
- Pancytopenia preceded by recent history of fever followed by ear pain and severe pharyngitis which resolved in late October/early November. Per pt, no labwork past 2 years until November found to have severe anemia with peripheral blast. Within a week
or two later, also neutropenic, thrombocytopenic.
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
Per Hem/Onc Dr. Martínez, pancytopenia too acute to explain myelofibrosis. Should evaluate for another process.
- leukopenia seems to be improving, ANC unchanged
- UA negative.
- blood cx's NGTD
- CXR/CT negative PNA
- CT C/A/P small pulm nodules (3), mediastinal mass-like lesion, small bilateral axillary LN, small duodneal mass as well.
- reticulocyte count inappropriately low
- pending: Tularemia Ab, RMSF Ab; ( pt [facility], although no known insect bites)
- Anaplasma Ab negative
- EBV PCR pending (unlikely without hepatosplenomegaly or elevated LFT's)
- qft gold - ordered
- HIV screen negative
- Consider TB and fungal infection if above work-up negative.
- Consider excisional biopsy of right axilla lymph node for cultures (alert microlab if tularemia suspected) and path.
- To work-up of mediastinal mass.
- Awaiting transfer to [facility] for further work-up.
Chief Complaint
-: Fever and Other (neutropenia)
Subjective / Review of Systems
Tmax 100.4 overnight
bp stable
wbc 1.0
hgb 8.9 today
plt stable at 55
still with some tenderness of the axillary LNs
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
Vital Signs / Physical Exam
Vital Signs
Vital Signs
Temp Pulse Resp BP Pulse Ox
98.8 F 111 19 179/103 97
12/13/23 15:32 12/13/23 15:32 12/13/23 15:32 12/13/23 15:32 12/13/23 15:32
Physical Exam
Constitutional: No Acute Distress
Cardiovascular: Regular Rate and S1/S2; Negative Murmur or Rub
Pulmonary: Clear and Symmetric; Negative Wheezes or Rales
Gastrointestinal: Soft, Non Tender, Non Distended and Normal Bowel Sounds
Skin: Warm and Dry; Negative Rash or Jaundice
Neurological: Awake
Objective Data
Lab Data
Lab Results
12/13/23 06:59
12/08/23 07:04
PT 13.8 Sec (11.4-14.6) 12/07/23 12:21
INR 1.07 12/07/23 12:21
APTT 31.3 Sec (23.4-35.0) 12/07/23 12:21
Estimated Creat Clear > 125 ml/min 12/08/23 07:04
Total Bilirubin 0.7 mg/dl (0.2-1.3) 12/08/23 07:04
AST 20 U/L (17-59) 12/08/23 07:04
ALT 31 U/L (0-50) 12/08/23 07:04
Alkaline Phosphatase 92 U/L (38-126) 12/08/23 07:04
Most recent labs reviewed.
Micro Results:
12/07/23 13:56 Blood Culture - Final
Blood/Venous No Growth - Final Report
12/07/23 13:56 Blood Culture - Final
Blood/Venous No Growth - Final Report
12/09/23 CT c/a/p 3 pulmonary nodules measuring up to 5 mm. No evidence of pneumonia.
Anterior mediastinal soft tissue attenuation, somewhat masslike measuring up to 2.3 cm. Cannot exclude thymic mass, such as thymoma. Initial step for further evaluation may include PET/CT. Small bilateral axillary lymph nodes measuring up to 9.5 mm
on the right, with associated soft tissue stranding of subcutaneous fat and overlying skin thickening. Possibly inflammatory or infectious in etiology. Clinical correlation recommended.
No adenopathy in the abdomen or pelvis.
Care Review
Plan reviewed with: Physician (Dr Dorado - AML )
--- NOTE | 2023-12-13 17:57 | W.PN.ONC2 ---
Today's Communication / Plan
-
- AML with PICALM::MLLT10 fusion
- awaiting transfer to [facility] to likely start induction chemotherapy.
- continue to monitor CBC daily, fever curve.
Impression
Impression
Acute Myeloid leukemia
Neutropenic fever
Pancytopenia
Right axillary lymph node tenderness
Anxiety
Plan
Plan
BM core biopsy from 11/25 were non-diagnostic with hypercellularity, increased fibrosis, no excess blasts. findings were suggestive for MDS/MF however NGS testing revealed a mutation in PICALM::MLLT10. This is a rare sub-type of AML and meets AML
classification regardless of blast count (however peripheral flow 5/2 notable for 7% blasts). Reached out to [facility] transfer center who upgraded transfer to emergency, hoping for bed within next 24 hours.
Continue supportive care, transfuse prbc if hgb < 7. Would favor CMV negative blood in case transplant become a consideration.
Continue abx and infectious w/u per ID. Cultures remain NTD
Subjective/Objective
Chief Complaint
neutropenic fevers, thrombopenia, anemia
Subjective
pt had repeat temp spike to 100.4 last night. Denies cough, SOB, dysuria. He continues to have tenderness and erythema involving right axilla.
Vital Signs:
Vital Signs
Temp Pulse Resp BP Pulse Ox
98.8 F 111 19 179/103 97
12/13/23 15:32 12/13/23 15:32 12/13/23 15:32 12/13/23 15:32 12/13/23 15:32
Lab Results:
Laboratory Data
WBC 1.0 10^3/uL (4.8-10.8) L* 12/13/23 06:59
Hgb 8.9 g/dL (13.0-18.0) L 12/13/23 06:59
Plt Count 55 10^3/uL (130-400) L 12/13/23 06:59
PT 13.8 Sec (11.4-14.6) 12/07/23 12:21
INR 1.07 12/07/23 12:21
APTT 31.3 Sec (23.4-35.0) 12/07/23 12:21
eGFR > 60.00 12/08/23 07:04
Physical Exam
HEENT: Moist Mucous Membranes; No Jaundice
Cardiology: Normal Sinus Rhythm
Pulmonary: Clear
GI: Soft
Extremities: Other (erythematous, tender mass in right axilla. ); No Edema
Neuro: Non Focal
Review of Systems
Review of Systems
Constitutional: Reports Fever and Fatigue
Respiratory: Denies Dyspnea or Cough
Gastrointestinal: Denies Nausea/Vomiting
Skin: Denies Rash
Neurological: Denies Headache
Hem/Lymphatic: Reports Swollen Glands
[2023-12-13] MEDS: LEVAQUIN 750 MG PO (18:09)
[2023-12-13] MEDS: ATIVAN 0.5 MG PO (18:14)
[2023-12-13 19:10] LABS: RMSF IgG Antibodies <1:64 (<1:64); RMSF IgM Antibodies <1:64 (<1:64)
[2023-12-13 23:49] VITALS: BP 144/94
[2023-12-14 07:00] VITALS: BP 157/88
[2023-12-14] MEDS: ZESTRIL 20 MG PO ×2 (10:00→19:48)
[2023-12-14] MEDS: VIBRAMYCIN 100 MG PO ×2 (10:00→19:48)
[2023-12-14] MEDS: LEVAQUIN 750 MG PO (10:00)
[2023-12-14] MEDS: CARDIZEM CD 240 MG PO (10:01)
--- NOTE | 2023-12-14 12:05 | W.PN.ID1 ---
Date of Service
Date of Service: December 14, 2023
Today's Communication
restart cefepime, stopped levofloxacin
follow blood cultures
rickettsia ab negative
Assessment / Plan
# Neutropenic fever; fever relapsed
# pancytopenia
# Tender Right axillary lymph node
# Bilateral axillary LAD by CT
# Mediastinal masslike lesion by CT ?thymoma
- fever relapsed; repeat blood cultures in progress no growth to date
- restarted cefepime, stopped levofloxacin
- qtc remains acceptable
- follow clinically
- Continue empiric doxycycline (d6) - note relapse of fevers while on this agent as monotherapy
- pending: Tularemia Ab, qft gold ( pt [employer], although no known insect bites)
- Anaplasma Ab, rickettsia IgG/IgM, HIV negative
- EBV PCR pending (unlikely without hepatosplenomegaly or elevated LFT's)
- Consider fungal infection if above work-up negative and not responding to cefepime.
- given pending transfer to [facility] (anticipated today per hematology) would defer excisional biopsy of right axilla lymph node for cultures (alert microlab if tularemia suspected) and path to their service
- Awaiting transfer to [facility] for further work-up.
Chief Complaint
-: Fever and Other (neutropenia)
Subjective / Review of Systems
tmax 102.9 overnight
bp stable
wbc 1.0 today
ANC remains 0
cr 0.6
qtc acceptable
repeat blood cultures in progress
Vital Signs / Physical Exam
Vital Signs
Vital Signs
Temp Pulse Resp BP Pulse Ox
98.3 F 100 16 157/88 97
12/14/23 07:00 12/14/23 07:00 12/14/23 07:00 12/14/23 07:00 12/14/23 07:00
Physical Exam
Constitutional: No Acute Distress and Chronically Ill
Cardiovascular: Regular Rate and S1/S2; Negative Murmur or Rub
Pulmonary: Clear and Symmetric; Negative Wheezes or Rales
Gastrointestinal: Soft, Non Tender, Non Distended and Normal Bowel Sounds
Skin: Warm and Dry; Negative Rash or Jaundice
Objective Data
Lab Data
Lab Results
12/13/23 06:59
12/08/23 07:04
PT 13.8 Sec (11.4-14.6) 12/07/23 12:21
INR 1.07 12/07/23 12:21
APTT 31.3 Sec (23.4-35.0) 12/07/23 12:21
Estimated Creat Clear > 125 ml/min 12/08/23 07:04
Total Bilirubin 0.7 mg/dl (0.2-1.3) 12/08/23 07:04
AST 20 U/L (17-59) 12/08/23 07:04
ALT 31 U/L (0-50) 12/08/23 07:04
Alkaline Phosphatase 92 U/L (38-126) 12/08/23 07:04
Most recent labs reviewed.
Micro Results:
12/14/23 04:52 Blood Culture - Pending
Blood/Venous
12/13/23 17:51 Blood Culture - Pending
Blood/Venous
12/07/23 13:56 Blood Culture - Final
Blood/Venous No Growth - Final Report
12/07/23 13:56 Blood Culture - Final
Blood/Venous No Growth - Final Report
12/09/23 CT c/a/p 3 pulmonary nodules measuring up to 5 mm. No evidence of pneumonia.
Anterior mediastinal soft tissue attenuation, somewhat masslike measuring up to 2.3 cm. Cannot exclude thymic mass, such as thymoma. Initial step for further evaluation may include PET/CT. Small bilateral axillary lymph nodes measuring up to 9.5 mm
on the right, with associated soft tissue stranding of subcutaneous fat and overlying skin thickening. Possibly inflammatory or infectious in etiology. Clinical correlation recommended.
No adenopathy in the abdomen or pelvis.
[2023-12-14 13:10] LABS: % Lymphocytes 87.3 % (20.5-51.1); % Monocytes 3.6 % (1.7-9.3); % Neutrophils 9.1 % (42.2-75.2); Hematocrit 24.2 % (39.0-52.0); Hemoglobin 8.9 g/dL (13.0-18.0); Mean Corp Hgb Conc. 36.8 g/dL (33.0-37.0); Mean Corpuscular Volume 81.5 fL (80.0-94.0); Mean Platelet Volume 10.8 fL (7.4-10.4); Nucleated Red Blood Cells % 0 % (-); Platelet Count 84 10^3/uL (130-400); Red Blood Cell Count 2.97 10^6/uL (4.70-6.10)
[2023-12-14 13:16] LABS: White Blood Cell Count 1.1 10^3/uL (4.8-10.8)
--- NOTE | 2023-12-14 13:19 | W.PN.HOSP.TC ---
Addendum entered and electronically signed by Val Arroyo MD 12/15/23 11:35:
Addendum
Called [place] transfer center to update the status. Patient might be getting better in the next 24 hours at any time. Discussed with patient and his brother. Updated nursing staff
Discharge when bed available
Total discharge time spent to see the patient, examine the patient, review data and lab results, discuss discharge plan with patient, nursing staff around 65 minutes
Original Note:
Today's Communication/Plan
-
.
Assessment / Plan
Assessment / Plan
Physical exam:
General: No Apparent Distress, Comfortable and Conversant
HEENT: Normocephalic, Anicteric
Respiratory: Clear
Cardiac: S1/S2 and Tachycardia
GI: Soft, Non Tender and Non Distended
Musculoskeletal: No Edema
Neuro: AO x 3, No Motor Deficits and Nonfocal/grossly intact
Psych: calm
# AML with Pancytopenia
WBC 1.1
Hemoglobin 8.9
Platelets 84
no active bleeding
s/p 3 units of RBCs. s/p BM biopsy (dry tap)
Hematology recommended transfer to [place],patient was accepted but await bed
CT chest, abdomen and pelvis showed lymphadenopathy in bilateral axillary areas. Low-attenuation mass in the segment of the duodenum. 3 pulmonary nodules, anterior mediastinal soft tissue attenuation. No acute inflammatory process in the abdomen
or chest.
Appreciate hematology help
# Neutropenic fever
Had recurrent fever now
Started back on Cefepime. Blood culture 12/12 pending
c/w oral doxycycline
Appreciate ID help
# Anxiety. Discussed with patient at length.
Provided encouragement. Will do low-dose Ativan as needed.
#Acute self-limiting severe pharyngitis-now resolved, early November. Asymptomatic. Of note from prior hospitalization- Patient does not think he has HIV-did not consent for blood test.
#HTN�benign
Better controlled .
Continue with lisinopril and diltiazem.
#RBBB, hx of
#Cervical DDD with radiculopathy C5-C6 level
#Cervical stenosis
# hyponatremia, Na at 133
#HLD
-Full Code
-DVT proph - SCDs
Prolonged pt's encounter. Family also requested updates
Many calls to [facility] every day. No bed available yet
Total time spent to see the patient, examine the patient, review data and lab results, discuss treatment plan with patient, oncologist, family, nursing staff around 57 minutes
Anticipated Discharge: Today
Subjective/Interval History
-
Date of Service: December 14, 2023
Melton snot feel worse
Had Fever over night
Objective Data
-
Labs:
Laboratory Results
12/14/23
12:43
WBC 1.1 L*
Hgb 8.9 L
Hct 24.2 L
Plt Count 84 L D
Sodium Pending
Potassium Pending
Chloride Pending
Carbon Dioxide Pending
BUN Pending
Creatinine Pending
Glucose Pending
Calcium Pending
Total Bilirubin Pending
AST Pending
ALT Pending
Alkaline Phosphatase Pending
Vital Signs:
Vital Signs
Temp Pulse Resp BP Pulse Ox
98.3 F 100 16 157/88 97
12/14/23 07:00 12/14/23 07:00 12/14/23 07:00 12/14/23 07:00 12/14/23 07:00
I&O
12/13/23 12/14/23 12/15/23
06:59 06:59 06:59
Intake Total 1280 / 1280 1000 / 1000
Balance 1280 / 1280 1000 / 1000
[2023-12-14 13:23] LABS: ALT (SGPT) 31 U/L (0-50); AST (SGOT) 21 U/L (17-59); Albumin 4.2 g/dl (3.5-5.0); Alkaline Phosphatase 102 U/L (38-126); Blood Urea Nitrogen 27 mg/dl (9-20); Carbon Dioxide 23 mmol/L (22-30); Chloride 98 mmol/L (98-107); Estimated Creatinine Clearance > 125 ml/min; Glucose 109 mg/dl (70-99); Potassium 4.6 mmol/L (3.5-5.1); Sodium 133 mmol/L (135-145); Total Bilirubin 0.8 mg/dl (0.2-1.3); Total Protein 6.9 g/dl (6.3-8.2); eGFR > 60.00
[2023-12-14 14:54] LABS: Absolute Neutrophils 0.1 10^3/uL (1.4-6.5)
[2023-12-14 15:00] VITALS: BP 132/83
[2023-12-14] MEDS: MAXIPIME 2000 MG IV (17:45)
[2023-12-14] MEDS: STERILE WATER FOR INJECTION 10 ML IV ×2 (17:46→18:48)
[2023-12-14] MEDS: ATIVAN 0.5 MG PO (19:55)
--- NOTE | 2023-12-14 21:56 | PTCARENOTE ---
Dr. Talbot from [facility] called and wanted an update on the patient. Recent vitals and lab results were reviewed and a recent oncology report. Print outs of imaging and notes as available will be provided by the Steam [employer] in the discharge packet as
requested. All scheduled medications have been given except for the upcoming midnight dose of Maxipime. Dr. Talbot said it is OK that the midnight dose of Maxipime is not given. Dr. Talbot is aware that transfer is scheduled at 0130 am.
--- NOTE | 2023-12-14 22:27 | PTCARENOTE ---
Report was provided to Lkoi at [facility] ([phone]). Assessment and VSS and last medications and recent labs. It was noted that midnight Maxipime will not be given and MD Talbot is aware and said that is no problem.
[2023-12-15] VITALS: BP 161/91
[2023-12-15] MEDS: MAXIPIME IV (00:02)
[2023-12-15] MEDS: STERILE WATER FOR INJECTION IV (00:03)
--- NOTE | 2023-12-15 06:26 | W.DCSUMMARY ---
Discharge Summary
Discharge Data
Date of Admission: 12/07/23
Date of Discharge: 12/15/23
-
Pending Results: No
Hospital Course
58 years old male came from home. Patient presented with fever. Patient had history of neutrophilia/leukopenia. His blood work showed white blood cell count 1.0, hemoglobin 7.0, platelet 143. Patient was followed by oncology and infectious
diseases doctors. Blood culture did not show any growth. Patient was diagnosed with neutropenic fever. He was given empiric intravenous antibiotics. He was followed by regular blood work. He was given blood transfusion in the hospital. Patient
had bone marrow biopsy done on 11/26/23 and result came back consistent with acute myeloid leukemia. Oncology doctor recommended transfer to [facility] ([facility]). Arrangements were made with transfer center and oncology
service at [place]. Transfer was delayed for several days because of bed availability. Patient did not have symptoms other than generalized weakness. He had some resolution of fever but temperature started to go up when he was placed on oral single
agent antibiotic. Infectious disease outside sales consultant continued to follow and started the patient back on intravenous antibiotic. Patient remained hemodynamically stable and was discharged to [facility] in a stable condition.
Discharge Plan
-
Patient Disposition: Acute Care Hospital
Discharge Orders:
Discharge Patient (As Directed); Ordered 12/09/23
Ordered By: Val Arroyo
Discharge Date and Time
Discharge Date/Time: 12/15/23 01:01
Print Language: LITHUANIAN
== END 2023-12-15 01:01 | disposition short-term general hospital (02) | DRG 841 ==
LOC: 2 NORTH 15:58
PROVIDERS: Internal Medicine; Internal Medicine Hematology & Oncology; Nurse Practitioner Family; Student in an Organized Health Care Education/Training Program; ADMITTING PHYSICIAN Internal Medicine; ATTENDING PHYSICIAN Internal Medicine; CONSULT PHYSICIAN Internal Medicine Hematology & Oncology; CONSULT PHYSICIAN Internal Medicine Infectious Disease; EMERGENCY PHYSICIAN Emergency Medicine; FAMILY PHYSICIAN Internal Medicine
PROC: 30233N1 Transfusion of Nonautologous Red Blood Cells into Peripheral Vein, Percutaneous Approach (ICD-10-PCS; 2023-12-07)
DX: D47.1 Chronic myeloproliferative disease (principal); C92.00 Acute myeloblastic leukemia, not having achieved remission; E87.1 Hypo-osmolality and hyponatremia; E78.00 Pure hypercholesterolemia, unspecified; M50.30 Other cervical disc degeneration, unspecified cervical region; D70.9 Neutropenia, unspecified; Z75.1 Person awaiting admission to adequate facility elsewhere
CPT/HCPCS: 71046; 71260; 74177; 80053; 81003; 82728; 83615; 84550; 85014; 85018; 85025; 85045; 85610; 85730; 86666; 86757; 86850; 86900; 86901; 86920; 87040; 87389; 93005; 94760; 96374; 99285; P9016; Q9967